=== PATIENT | male | born 1945 | race American Indian/Alaskan Native ===

== ENCOUNTER 2016-09-11 05:22 | Inpatient (IN) | payer MEDICARE ==
[2016-09-11] MEDS ORDERED: LASIX ONE (05:26)
[2016-09-11] MEDS ORDERED: NITRO-BID 2% TP ONE ×2 (05:26→05:30)
[2016-09-11] MEDS ORDERED: MORPHINE ONE (05:26)
[2016-09-11] MEDS ORDERED: LASIX IV ONE (05:30)
[2016-09-11] MEDS ORDERED: MORPHINE IV ONE (05:30)
[2016-09-11] MEDS ORDERED: BABY ASPIRIN ONE (05:49)
[2016-09-11] MEDS ORDERED: ASPIRIN PO ONE (05:55)
--- NOTE | 2016-09-11 05:56 | Emergency Department Report ---
ED Shortness of Breath HPI - General Chief Complaint: Dyspnea/Respdistress Stated Complaint: ITZEL Source: EMS Mode of arrival: Stretcher Limitations: Physical Limitation - History of Present Illness Initial Comments: This is a 70-year-old gentleman who comes in by EMS due to acute respiratory distress. He reports increased dyspnea over the course of the last 24 hours. He does give history of kidney failure. He is on his hemodialysis. Patient also reports a history of congestive heart failure. He did have heart attack 1 month ago. He states he did not have any chest pain when he had his heart attack 1 month ago. He denies any fevers. He denies any headache. He denies any chest pain today as well. Patient denies cough. Reports increased dyspnea with lying down. -: Gradual Severity: severe Improves With: oxygen Worsens With: lying flat Treatments Prior to Arrival: oxygen - Related Data Home Medications Medication Instructions Recorded Confirmed Last Taken Cinacalcet HCl [Sensipar] 90 mg PO DAILY 08/04/16 09/11/16 Unknown Glimepiride 1 mg PO BID 08/04/16 09/11/16 Unknown HYDROcodone/APAP 5-325 [[place] 1 each PO Q4HR PRN 08/04/16 09/11/16 08/03/16 5-325 mg TAB] Losartan [Cozaar] 50 mg PO QDAY 08/04/16 09/11/16 08/03/16 Sevelamer Carbonate [Renvela] 800 mg PO TIDWM 08/04/16 09/11/16 08/03/16 Sucroferric Oxyhydroxide [Velphoro] 1,000 mg PO QAC 08/04/16 09/11/16 Unknown Previous Rx's Medication Instructions Recorded Last Taken Type Aspirin [Aspirin BABY CHEW TAB] 81 mg PO QDAY #30 tab.chew 08/08/16 Unknown Rx AtorvaSTATin [Lipitor] 80 mg PO QHS #30 tablet 08/08/16 Unknown Rx Carvedilol [Coreg] 12.5 mg PO BID #60 tablet 08/08/16 Unknown Rx Ticagrelor [Brilinta] 90 mg PO BID #60 tablet 08/08/16 Unknown Rx Allergies Allergy/AdvReac Type Severity Reaction Status Date / Time No Known Allergies Allergy Verified 08/04/16 17:01 ED Review of Systems ROS: Stated complaint: ITZEL Other details as noted in HPI Comment: All other systems reviewed and negative Constitutional: denies: chills, fever Eyes: denies: eye pain, eye discharge, vision change ENT: denies: ear pain, throat pain Respiratory: shortness of breath, SOB with exertion, SOB at rest. denies: cough , wheezing Cardiovascular: denies: chest pain, palpitations Endocrine: no symptoms reported Gastrointestinal: denies: abdominal pain, nausea, diarrhea Genitourinary: denies: urgency, dysuria Musculoskeletal: other (leg edema). denies: back pain, joint swelling, arthralgia Skin: denies: rash, lesions Neurological: denies: headache, weakness, paresthesias Psychiatric: denies: anxiety, depression Hematological/Lymphatic: denies: easy bleeding, easy bruising ED Past Medical Hx - Past Medical History Previous Medical History?: Yes Hx Hypertension: Yes Hx Heart Attack/AMI: Yes Hx Congestive Heart Failure: Yes Hx Diabetes: Yes Hx Renal Disease: Yes (dialysis M/W/F) Hx Arthritis: No Hx HIV: No Additional medical history: Heart attack was treated with stent placement. - Surgical History Additional Surgical History: BKA left leg, right large toe amputated 07/21, hernia, left A/V graft. Has AV fistula left upper arm. - Social History Smoking Status: Current Every Day Smoker Substance Use Type: None - Medications Home Medications: Home Medications Medication Instructions Recorded Confirmed Last Taken Type Cinacalcet HCl [Sensipar] 90 mg PO DAILY 08/04/16 09/11/16 Unknown History Glimepiride 1 mg PO BID 08/04/16 09/11/16 Unknown History HYDROcodone/APAP 5-325 [[place] 1 each PO Q4HR PRN 08/04/16 09/11/16 08/03/16 History 5-325 mg TAB] Losartan [Cozaar] 50 mg PO QDAY 08/04/16 09/11/16 08/03/16 History Sevelamer Carbonate [Renvela] 800 mg PO TIDWM 08/04/16 09/11/16 08/03/16 History Sucroferric Oxyhydroxide [Velphoro] 1,000 mg PO QAC 08/04/16 09/11/16 Unknown History Aspirin [Aspirin BABY CHEW TAB] 81 mg PO QDAY #30 tab.chew 08/08/16 09/11/16 Unknown Rx AtorvaSTATin [Lipitor] 80 mg PO QHS #30 tablet 08/08/16 09/11/16 Unknown Rx Carvedilol [Coreg] 12.5 mg PO BID #60 tablet 08/08/16 09/11/16 Unknown Rx Ticagrelor [Brilinta] 90 mg PO BID #60 tablet 08/08/16 09/11/16 Unknown Rx ED Physical Exam - General Limitations: Physical Limitation General appearance: alert, in distress (due to respiratory condition) - Head Head exam: Present: atraumatic, normocephalic - Eye Eye exam: Present: normal appearance, EOMI. Absent: scleral icterus - ENT ENT exam: Present: normal exam, normal orophraynx - Respiratory Respiratory exam: Present: respiratory distress, rhonchi, decreased breath sounds - Cardiovascular Cardiovascular Exam: Present: normal rhythm, tachycardia, other (hyperdynamic). Absent: systolic murmur, diastolic murmur - GI/Abdominal GI/Abdominal exam: Present: soft. Absent: tenderness, organomegaly - Extremities Exam Extremities exam: Present: pedal edema (2+ to the mid calf bilaterally. Distal pedal pulses are palpable. Skin changes noted.), other (left arm with fistula good thrill noted.) - Back Exam Back exam: Present: normal inspection. Absent: tenderness, CVA tenderness (R), CVA tenderness (L) - Neurological Exam Neurological exam: Present: alert, oriented X3, other (moving all 4 extremities appropriately.) - Psychiatric Psychiatric exam: Present: normal affect, anxious - Skin Skin exam: Present: warm, dry, intact ED Course Vital Signs 09/11/16 09/11/16 09/11/16 05:25 05:29 05:33 Temperature 99.5 F Pulse Rate 114 H 116 H 107 H Respiratory 35 H 31 H Rate Blood Pressure 200/118 200/118 Blood Pressure [Right] O2 Sat by Pulse 99 100 Oximetry 09/11/16 09/11/16 09/11/16 05:34 05:36 05:38 Temperature 97.5 F L Pulse Rate 106 H 103 H 101 H Respiratory 27 H 29 H 30 H Rate Blood Pressure Blood Pressure 200/109 [Right] O2 Sat by Pulse 100 100 100 Oximetry 09/11/16 09/11/16 09/11/16 05:40 05:42 05:44 Temperature Pulse Rate 100 H 98 H 97 H Respiratory 27 H 26 H 28 H Rate Blood Pressure Blood Pressure [Right] O2 Sat by Pulse 100 100 100 Oximetry 09/11/16 09/11/16 09/11/16 05:46 05:48 05:49 Temperature Pulse Rate 99 H 98 H Respiratory 28 H 27 H 35 H Rate Blood Pressure Blood Pressure [Right] O2 Sat by Pulse 100 100 99 Oximetry 09/11/16 09/11/16 09/11/16 05:50 05:52 05:54 Temperature Pulse Rate 97 H 100 H 103 H Respiratory 28 H 26 H 36 H Rate Blood Pressure Blood Pressure [Right] O2 Sat by Pulse 100 100 100 Oximetry 09/11/16 09/11/16 09/11/16 05:56 05:58 06:00 Temperature Pulse Rate 99 H 98 H 96 H Respiratory 26 H 27 H 26 H Rate Blood Pressure Blood Pressure [Right] O2 Sat by Pulse 99 100 100 Oximetry 09/11/16 09/11/16 09/11/16 06:02 06:04 06:06 Temperature Pulse Rate 96 H 96 H 96 H Respiratory 27 H 26 H 27 H Rate Blood Pressure Blood Pressure [Right] O2 Sat by Pulse 98 98 97 Oximetry 09/11/16 09/11/16 09/11/16 06:08 06:10 06:11 Temperature 98.5 F Pulse Rate 96 H 96 H 96 H Respiratory 28 H 28 H 29 H Rate Blood Pressure 132/71 132/71 Blood Pressure 139/70 [Right] O2 Sat by Pulse 97 96 96 Oximetry 09/11/16 09/11/16 09/11/16 06:12 06:14 06:15 Temperature Pulse Rate 97 H 99 H 97 H Respiratory 26 H 32 H 29 H Rate Blood Pressure 132/71 132/71 139/70 Blood Pressure [Right] O2 Sat by Pulse 97 98 97 Oximetry 09/11/16 09/11/16 09/11/16 06:16 06:18 06:20 Temperature Pulse Rate 97 H 96 H 97 H Respiratory 26 H 24 28 H Rate Blood Pressure 139/70 139/70 139/70 Blood Pressure [Right] O2 Sat by Pulse 98 98 98 Oximetry 09/11/16 09/11/16 06:22 06:26 Temperature 98.3 F Pulse Rate 96 H 90 Respiratory 24 24 Rate Blood Pressure 139/70 Blood Pressure 139/70 [Right] O2 Sat by Pulse 98 99 Oximetry - Reevaluation(s) Reevaluation #1: 09/11/16 06:21 ECG at 05 33 with sinus tachycardia at 110 bpm with a normal TN and QRS. Biatrial enlargement is noted. There is anterolateral ST segment elevation. There is some mild ST depression noted in lead 3 as well. Does have the appearance of acute STEMI. Reevaluation #2: 09/11/16 06:21 Patient was immediately placed on BiPAP upon arrival here. Nitroglycerin paste was placed to his chest as well as morphine for comfort. Patient was given an aspirin as well. He was given Lasix as well. He did appear to be in acute congestive heart failure. ECG did M did demonstrate what appears to be an acute STEMI. I did obtain ECG from 08/06/2016 as well. This is an identical ECG. 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 He instructed me not to call at STEMI as the patient has no chest pain and has an identical ECG. Patient is subjectively feeling significant improvement on BiPAP. He is calm much more calm now. He continues to endorse no chest pain at this time. Pressures come down somewhat as well. His heart rate is coming down to the 90 range as well. Reevaluation #3: 09/11/16 06:48 Patient continues to remain very comfortable here. He does have a troponin that is elevated at 0.355. Unclear to me whether this is rising or whether this is still continuing to drop from his heart attack from one month ago. Again his ECG is unchanged compared to prior. I did speak with Dr. Mendez from cardiology and he did not want to do any aggressive interventions at this time. He did request the patient be admitted to the hospitalist for continued evaluation and care. Potassium also noted to be elevated. Patient was given calcium gluconate as well as Kayexalate. He is a dialysis patient will clearly require dialysis today. He has not had any output from the Lasix given today. ED Medical Decision Making - Lab Data Result diagrams: 09/11/16 05:47 09/11/16 05:47 - Radiology Data interpreted by me: cmg with pulm congestion. Critical care attestation.: If time is entered above; I have spent that time in minutes in the direct care of this critically ill patient, excluding procedure time. ED Disposition Clinical Impression: End stage renal disease, Hyperkalemia, Elevated troponin I level Congestive heart failure Qualifiers: Congestive heart failure type: systolic Congestive heart failure chronicity: acute Qualified Code(s): I50.21 - Acute systolic (congestive) heart failure Disposition: OP ADMITTED IP TO THIS HOSP Is pt being admited?: Yes Does the pt Need Aspirin: No Condition: Stable Referrals: PRIMARY CARE, [Primary Care Provider] - 3-5 Days Time of Disposition: 06:23
[2016-09-11 05:58] LABS: Basophils % (Auto) 0.5 % (0.0-1.8); Eosinophils % (Auto) 3.4 % (0.0-4.3); Hematocrit 40.2 % (35.5-45.6); Hemoglobin 12.8 gm/dl (11.8-15.2); Mean Corpuscular HGB Conc 32 % (32-34); Mean Corpuscular Hemoglobin 29 pg (28-32); Mean Corpuscular Volume 90 fl (84-94); Platelet Count 199 K/mm3 (140-440); Red Blood Count 4.48 M/mm3 (3.65-5.03); White Blood Count 9.5 K/mm3 (4.5-11.0)
[2016-09-11 06:06] LABS: Red Cell Distribution Width 20.2 % (13.2-15.2)
[2016-09-11 06:09] LABS: INR 1.13 (0.87-1.13)
[2016-09-11 06:27] LABS: Alanine Aminotransferase 7 units/L (7-56); Albumin 3.7 g/dL (3.9-5); Albumin/Globulin Ratio 1.1 %; Alkaline Phosphatase 146 units/L (35-129); Anion Gap 27 mmol/L; BUN/Creatinine Ratio 5.74; Bilirubin,Total 0.3 mg/dL (0.1-1.2); Blood Urea Nitrogen 54 mg/dL (9-20); Calcium 9.2 mg/dL (8.4-10.2); Carbon Dioxide 21 mmol/L (22-30); Chloride 101.6 mmol/L (98-107); Glucose 204 mg/dL (75-100); Sodium 143 mmol/L (137-145); Total Protein 7.1 g/dL (6.3-8.2)
[2016-09-11 06:35] LABS: Potassium 6.2 mmol/L (3.6-5.0)
[2016-09-11] MEDS ORDERED: KIONEX PO ONE (06:46)
[2016-09-11] MEDS ORDERED: CALCIUM GLUCONATE 1,000 MG in NACL 0.9% 100 ML IV ONE ×2 (06:46→11:00)
--- NOTE | 2016-09-11 07:01 | Admit Criteria Form ---
Admission Criteria Documentation: RESPIRATORY FAILURE GRG Clinical Indications for Admission to Inpatient Care (Place 'X' for any and all applicable criteria): Hospital admission is needed for appropriate care of the patient because of acute respiratory failure or insufficiency as indicated by ANY ONE of the following(1)(2)(3)(4)(5)(6)(7)(8): [X]I. Mechanical ventilation needed (acute invasive or noninvasive) [ ]II. Severe ventilation deficit as indicated by ANY ONE of the following (9) [ ]a) Respiratory acidosis (pH less than 7.32 and partial pressure of carbon dioxide greater than 40 mm Hg (5.3 kPa)) [ ]b) Partial pressure of carbon dioxide greater than 44 mm Hg (5.9 kPa ) (new) [ ]c) Airflow measurements less than 25% of predicted (eg, peak expiratory flow rate less than 100 L/minute) [ ]d) Forced vital capacity less than 15 mL/kg of ideal body weight, or 50% decrease in vital capacity from baseline [ ]III. Noncardiac pulmonary edema not resolving with rapid emergency treatment (8) [ ]IV. Severe respiratory distress as indicated by ANY ONE of the following: [ ]a) Severe tachypnea (respiratory rate greater than 30, greater than 45 for 6-month-old, greater than 60 for ) [ ]b) Severe hypoxemia (partial pressure of oxygen less than 50 mm Hg ( 6.7 kPa) on greater than 50% oxygen or partial pressure of oxygen to FIO2 ratio less than 200) [ ]c) Mental status deterioration from respiratory disease [ ]V. Airway obstruction or inadequate protection [A](10)(11) The original [employer] content created by [employer] has been revised. The portions of the content which have been revised are identified through the use of italic text or in bold, and [employer] has neither reviewed nor approved the modified material. All other unmodified content is copyright [employer]. Please see references footnoted in the original [employer] edition 2016 Admission Criteria Met: Yes
[2016-09-11 07:15] LABS: Cholesterol 137 mg/dL (50-199); LDL Cholesterol,Direct 60 mg/dL (50-130); Triglycerides 81 mg/dL (2-149)
--- NOTE | 2016-09-11 07:19 | History and Physical Report ---
History of Present Illness Date of examination: 09/11/16 Date of admission: 09/11/16 Chief complaint: Worsening shortness of breath and chest pressure since last night History of present illness: Very pleasant 70-year-old -[place] male patient with significant past medical history of coronary artery disease status post PCI to LAD 1 month ago end-stage renal disease on hemodialysis, peripheral vascular disease status post left BKA hypertension diabetes mellitus dyslipidemia presented to the emergency room with worsening shortness of breath and chest pain since last night was since early this morning EMS noted his blood pressures to be 210/110, significantly improved now. In the ER the patient was hypoxic maintained on BiPAP Patient has dialysis 3 times a week last one was on Sunday the next due today, patient claims compliance with his medications and diet as well as dialysis Complaints of vague chest pressure, fever or cough Initial workup revealed hyperkalemia, positive troponins and fluid overload Past History Past Medical History: CAD, diabetes, ESRD, hypertension, hyperlipidemia, PVD Past Surgical History: hernia repair, PTCA, Other (left BKA, AV fistula, toe amputation) Social history: lives with family, smoking, full code. denies: alcohol abuse, prescription drug abuse Family history: hypertension Medications and Allergies Allergies Allergy/AdvReac Type Severity Reaction Status Date / Time No Known Allergies Allergy Verified 08/04/16 17:01 Home Medications Medication Instructions Recorded Confirmed Last Taken Type Cinacalcet HCl [Sensipar] 90 mg PO DAILY 08/04/16 09/11/16 Unknown History Glimepiride 1 mg PO BID 08/04/16 09/11/16 Unknown History HYDROcodone/APAP 5-325 [[place] 1 each PO Q4HR PRN 08/04/16 09/11/16 08/03/16 History 5-325 mg TAB] Losartan [Cozaar] 50 mg PO QDAY 08/04/16 09/11/16 08/03/16 History Sevelamer Carbonate [Renvela] 800 mg PO TIDWM 08/04/16 09/11/16 08/03/16 History Sucroferric Oxyhydroxide [Velphoro] 1,000 mg PO QAC 08/04/16 09/11/16 Unknown History Aspirin [Aspirin BABY CHEW TAB] 81 mg PO QDAY #30 tab.chew 08/08/16 09/11/16 Unknown Rx AtorvaSTATin [Lipitor] 80 mg PO QHS #30 tablet 08/08/16 09/11/16 Unknown Rx Carvedilol [Coreg] 12.5 mg PO BID #60 tablet 08/08/16 09/11/16 Unknown Rx Ticagrelor [Brilinta] 90 mg PO BID #60 tablet 08/08/16 09/11/16 Unknown Rx Active Meds: Active Medications Acetaminophen/Hydrocodone Bitart ([place] 5/325) 1 each PO Q4HR PRN PRN Reason: Pain Aspirin (Baby Aspirin) 81 mg PO QDAY JACKELINE Atorvastatin Calcium (Lipitor) 80 mg PO QHS JACKELINE Carvedilol (Coreg) 12.5 mg PO BID [facility] Heparin Sodium (Porcine) (Heparin) 5,000 unit SUB-Q Q12HR [facility] Losartan Potassium (Cozaar) 50 mg PO QDAY [facility] Miscellaneous Medication (Cinacalcet Hcl [Sensipar]) 90 mg PO DAILY [facility] Miscellaneous Medication (Glimepiride [Glimepiride]) 1 mg PO BID [facility] Sevelamer Carbonate (Renvela) 800 mg PO TIDWM [facility] Ticagrelor (Brilinta) 90 mg PO BID [facility] Review of Systems Constitutional: weakness, no weight loss, no weight gain, no fever, no chills Ears, nose, mouth and throat: no nasal congestion, no nasal discharge Cardiovascular: chest pain, orthopnea, shortness of breath, high blood pressure , no palpitations, no paroxysmal nocturnal dyspnea Respiratory: shortness of breath, dyspnea on exertion, wheezing, no cough Gastrointestinal: no abdominal pain, no nausea, no vomiting Genitourinary Male: no dysuria, no flank pain Musculoskeletal: no myalgias, no arthritis Integumentary: no rash, no lesions Neurological: no numbness, no seizures, no syncope Psychiatric: no anxiety, no depression Endocrine: no cold intolerance, no heat intolerance Hematologic/Lymphatic: no easy bruising, no easy bleeding Allergic/Immunologic: no urticaria, no allergic rhinitis Exam - Constitutional Vitals: Temp Pulse Resp BP Pulse Ox 97.8 F 96 H 28 H 120/40 99 09/11/16 07:03 09/11/16 06:56 09/11/16 06:56 09/11/16 06:56 09/11/16 06:56 General appearance: Present: mild distress, well-nourished, other (on BiPAP) - EENT Eyes: Present: PERRL, EOM intact - Neck Neck: Present: supple, normal ROM - Respiratory Respiratory effort: labored Respiratory: bilateral: diminished, rales, wheezing, negative: rhonchi - Cardiovascular Rhythm: regular Heart Sounds: Present: S1 & S2 - Extremities Extremities: no ischemia, pulses intact, pulses symmetrical Extremity abnormal: other (left BKA) - Abdominal General gastrointestinal: Present: soft, non-tender, non-distended, normal bowel sounds - Integumentary Integumentary: Present: clear, warm - Musculoskeletal Musculoskeletal: generalized weakness - Psychiatric Psychiatric: appropriate mood/affect, cooperative - Neurologic Neurologic: CNII-XII intact, moves all extremities Results - Labs CBC & Chem 7: 09/11/16 05:47 09/11/16 10:30 Labs: Abnormal lab results 09/11/16 09/11/16 Range/Units 05:47 05:47 RDW 20.2 H (13.2-15.2) % Lymph % (Auto) 36.5 H (13.4-35.0) % Potassium 6.2 H* (3.6-5.0) mmol/L Carbon Dioxide 21 L (22-30) mmol/L BUN 54 H (9-20) mg/dL Creatinine 9.4 H (0.8-1.5) mg/dL Glucose 204 H (75-100) mg/dL Alkaline Phosphatase 146 H (35-129) units/L Troponin T 0.355 H* (0.00-0.029) ng/mL Albumin 3.7 L (3.9-5) g/dL Assessment and Plan --Acute respiratory failure requiring BiPAP Secondary to fluid overload secondary to end-stage renal disease as well as acute on chronic systolic congestive heart failure Continue oxygen, titrated to O2 sats more than 90% Hemodialysis, history diuretics as needed --Hyperkalemia Secondary to end-stage renal disease, received calcium gluconate and Kayexalate Repeat potassium and adjust as needed stat Hemodialysis d/w --End-stage renal disease on hemodialysis d/w , nephrology --Acute on chronic systolic congestive heart failure Ejection fraction 35-40% recently IV diuretics, and hemodialysis --Nonspecific elevation of cardiac enzymes Probably secondary to end-stage renal disease However patient had recent stent to LAD 1 month ago With severe peripheral vascular disease, would benefit by cardiology evaluation Resume home cardiac medications --Malignant hypertension Now better controlled, continue current antihypertensives And when necessary hydralazine --Type 2 diabetes mellitus Accu-Chek sliding scale coverage and ADA diet And resume oral hypoglycemics, check hemoglobin A1c --Dyslipidemia stable on lipid-lowering medications --DVT prophylaxis with heparin ,renal dose --Full CODE STATUS Closely monitor the patient and adjust the management as needed Patient's condition treatment plan discussed in detail with the patient, his nurse As well as the family members at the bedside I answered all their questions Medical records reviewed Critical care time 45 minutes
[2016-09-11 07:34] LABS: HDL Cholesterol 68 mg/dL (40-59)
--- NOTE | 2016-09-11 07:46 | XRay Report ---
AP CHEST History: Dyspnea. Findings: Compared to 08/06/16. Heart size is borderline. Bilateral lower lung zone alveolar infiltrates have developed. This probably represents pulmonary edema. Infiltrates could be considered if fever is present. Trace pleural effusions are likely present. No pneumothorax. Impression: CHF.
[2016-09-11] MEDS ORDERED: NORCO 5/325 PO PRN (08:00)
[2016-09-11] MEDS ORDERED: NOVOLOG SUB-Q NR (08:20)
[2016-09-11] MEDS ORDERED: MORPHINE IV PRN (08:22)
[2016-09-11] MEDS ORDERED: PERCOCET 5/325 PO PRN (08:22)
[2016-09-11] MEDS ORDERED: HEPARIN ONE (08:43)
[2016-09-11] MEDS: HEPARIN SUB-Q SCH ×2 (08:45→22:06)
[2016-09-11] MEDS: AMARYL PO SCH ×2 (08:45→19:13)
[2016-09-11] MEDS: RENVELA PO SCH ×3 (08:45→18:50)
--- NOTE | 2016-09-11 09:22 | Consultation ---
History of Present Illness Consult date: 09/11/16 Requesting physician: ALPHONSO NARANJO Consult reason: other (SOB) History of present illness: The pt is a 70 y/o male with a past medical history significant for CAD, s/p AMI with PCI of mid LAD with 2 JADE (2.75 x 22 and a 2.5 x 14 overlapping) on 08/04/2016, PVCs, ICMP, , PVD s/p left BKA and right foot great toe amputation, ESRD on HD (MW schedule), HTN, HLP, DM. He is followed in our office by Dr. Bob. He presented with complaints of SOB and orthopnea since yesterday at 11PM. He reports that his symptoms gradually began and have gotten progressively worse since last night. He denies any chest pain, palpitations, n/v, diaphoresis, dizziness, or syncope. He states that he underwent HD on Sunday as usual and has not missed any HD. He reports compliance with his medications. He denies any precipitating, aggravating, or alleviating factors. On evaluation, he is on BIPAP. Past History Past Medical History: CAD, diabetes, ESRD, hypertension, hyperlipidemia, PVD Past Surgical History: hernia repair, PTCA, Other (left BKA, AV fistula, toe amputation) Social history: lives with family, smoking, full code. denies: alcohol abuse, prescription drug abuse Family history: hypertension Medications and Allergies Allergies Allergy/AdvReac Type Severity Reaction Status Date / Time No Known Allergies Allergy Verified 08/04/16 17:01 Home Medications Medication Instructions Recorded Confirmed Last Taken Type Cinacalcet HCl [Sensipar] 90 mg PO DAILY 08/04/16 09/11/16 Unknown History Glimepiride 1 mg PO BID 08/04/16 09/11/16 Unknown History HYDROcodone/APAP 5-325 [[place] 1 each PO Q4HR PRN 08/04/16 09/11/16 08/03/16 History 5-325 mg TAB] Losartan [Cozaar] 50 mg PO QDAY 08/04/16 09/11/16 08/03/16 History Sevelamer Carbonate [Renvela] 800 mg PO TIDWM 08/04/16 09/11/16 08/03/16 History Sucroferric Oxyhydroxide [Velphoro] 1,000 mg PO QAC 08/04/16 09/11/16 Unknown History Aspirin [Aspirin BABY CHEW TAB] 81 mg PO QDAY #30 tab.chew 08/08/16 09/11/16 Unknown Rx AtorvaSTATin [Lipitor] 80 mg PO QHS #30 tablet 08/08/16 09/11/16 Unknown Rx Carvedilol [Coreg] 12.5 mg PO BID #60 tablet 08/08/16 09/11/16 Unknown Rx Ticagrelor [Brilinta] 90 mg PO BID #60 tablet 08/08/16 09/11/16 Unknown Rx Active Meds: Active Medications Aspirin (Baby Aspirin) 81 mg PO QDAY [facility] Atorvastatin Calcium (Lipitor) 80 mg PO QHS [facility] Carvedilol (Coreg) 12.5 mg PO BID [facility] Cinacalcet (Sensipar) 90 mg PO QDAY [facility] Glimepiride (Amaryl) 1 mg PO BIDDIAB [facility] Heparin Sodium (Porcine) (Heparin) 5,000 unit SUB-Q Q12HR [facility] Insulin Aspart (Novolog) 0 units SUB-Q ONCE NR PRN Reason: Protocol Stop: 09/11/16 12:00 Losartan Potassium (Cozaar) 50 mg PO QDAY [facility] Miscellaneous Medication (Sucroferric Oxyhydroxide [Velphoro]) 1,000 mg PO QAC [facility] Morphine Sulfate (Morphine) 2 mg IV Q4H PRN PRN Reason: Pain, Moderate (4-6) Oxycodone/Acetaminophen (Percocet 5/325) 1 tab PO Q6H PRN PRN Reason: Pain, Moderate (4-6) Sevelamer Carbonate (Renvela) 800 mg PO TIDWM [facility] Ticagrelor (Brilinta) 90 mg PO BID [facility] Review of Systems Constitutional: no weight loss, no weight gain, no fever, no chills, no sweats Ears, nose, mouth and throat: no ear pain, no nose pain, no sinus pressure, no sinus pain, no epistaxis, no bleeding gums, no dental pain, no mouth pain, no dysphagia, no hoarseness, no sore throat Cardiovascular: orthopnea, shortness of breath, dyspnea on exertion, high blood pressure, no chest pain, no palpitations, no rapid/irregular heart beat, no edema, no syncope, no lightheadedness, no leg edema Respiratory: shortness of breath, dyspnea on exertion, no cough, no congestion, no wheezing, no pain Gastrointestinal: no abdominal pain, no nausea, no vomiting, no diarrhea, no constipation, no change in bowel habits Genitourinary Male: no dysuria, no hematuria, no flank pain, no discharge, no urinary frequency, no urinary hesitancy Musculoskeletal: no neck stiffness, no neck pain, no shooting arm pain, no arm numbness/tingling, no low back pain, no shooting leg pain, no leg numbness/ tingling, no redness of joints, no limitation of motion, no gait dysfunction Integumentary: no rash, no pruritis, no redness, no sores, no wounds Neurological: no head injury, no paralysis, no weakness, no parathesias, no numbness, no tingling, no seizures, no syncope, no tremors, no ataxia, no lack of coordination Endocrine: no cold intolerance, no heat intolerance, no polyphagia, no excessive thirst Hematologic/Lymphatic: no easy bruising, no easy bleeding, no lymphadenopathy Allergic/Immunologic: no urticaria, no wheezing, no persistent infections Physical Examination Vital Signs Temp Pulse Resp BP Pulse Ox 99.5 F 114 H 35 H 200/118 99 09/11/16 05:25 09/11/16 05:25 09/11/16 05:25 09/11/16 05:25 09/11/16 05:25 General appearance: mild distress HEENT: Positive: PERRL, Normocephaly, Mucus Membranes Moist Neck: Positive: neck supple, trachea midline Cardiac: Positive: Reg Rate and Rhythm, S1/S2 Lungs: Positive: Rales (bilaterlly throughout ), Oxygen Neuro: Positive: Grossly Intact, Cranial Nerve 2-12 Intact Abdomen: Positive: Unremarkable, Soft, Active Bowel Sounds. Negative: Tender Skin: Positive: Clear. Negative: Rash, Wound Musculoskeletal: No Fluid Collection, No Pain, Normal Range of Motion, other ( left BKA and right foot great toe amputation) Extremities: Present: Other (left BKA and right foot great toe amputation). Absent: edema Results 09/11/16 05:47 09/11/16 08:27 Comprehensive Metabolic Panel 09/11/16 Range/Units 08:27 Potassium 7.2 H* (3.6-5.0) mmol/L - Imaging and Cardiology Echo: report reviewed (08/04/2016: EF 35-40%, mild - JERE 1.53, AV mean gradient 6mmHg, abnormal diastolic function. ) Cardiac cath: report reviewed (08/04/2016: EF 30 - 35%, PCI of mid LAD with 2 JADE) EKG interpretations - Telemetry EKG Rhythm: Sinus Rhythm - EKG Sinus rhythms and dysrhythmias: sinus rhythm Myocardial infarction: anterior [place] (old age or i, lateral MS (old age or in Assessment and Plan Assessment: Acute systolic heart failure CAD, s/p AMI with PCI of mid LAD with 2 JADE on 08/04/2016 ICMP Elevated troponin - pt denies chest pain, ECG with NAF, minimally elevated, currently nonspecific in setting of ESRD and acutely decompensated HF. Mild Hyperkalemia PVD s/p left BKA and right foot great toe amputation ESRD on HD HTN HLP DM Plan: Cont ASA 81, statin, brilinta, coreg. Hold losartan at this time in setting of hyperkalemia. Cont to trend troponins. Electrolyte management and volume optimization per nephrology - STAT HD ordered per nephrology. Cont tele. Assessment and plan reviewed with pt and pt's at bedside. The patient has been seen in conjunction with Dr. Jyoti Tabares who agrees with the assessment and plan of care.
--- NOTE | 2016-09-11 09:49 | Consultation ---
History of Present Illness - Reason for Consult Consult date: 09/11/16 (consult) - History of Present Illness Discussed with --pt is reported to have hyperkalemia---stat HD ordered. Spoke with dialysis nurse. Monitor K Past History Past Medical History: CAD, diabetes, ESRD, hypertension, hyperlipidemia, PVD Past Surgical History: hernia repair, PTCA, Other (left BKA, AV fistula, toe amputation) Social history: lives with family, smoking, full code. denies: alcohol abuse, prescription drug abuse Family history: hypertension Medications and Allergies Allergies Allergy/AdvReac Type Severity Reaction Status Date / Time No Known Allergies Allergy Verified 08/04/16 17:01 Home Medications Medication Instructions Recorded Confirmed Last Taken Type Cinacalcet HCl [Sensipar] 90 mg PO DAILY 08/04/16 09/11/16 Unknown History Glimepiride 1 mg PO BID 08/04/16 09/11/16 Unknown History HYDROcodone/APAP 5-325 [[place] 1 each PO Q4HR PRN 08/04/16 09/11/16 08/03/16 History 5-325 mg TAB] Losartan [Cozaar] 50 mg PO QDAY 08/04/16 09/11/16 08/03/16 History Sevelamer Carbonate [Renvela] 800 mg PO TIDWM 08/04/16 09/11/16 08/03/16 History Sucroferric Oxyhydroxide [Velphoro] 1,000 mg PO QAC 08/04/16 09/11/16 Unknown History Aspirin [Aspirin BABY CHEW TAB] 81 mg PO QDAY #30 tab.chew 08/08/16 09/11/16 Unknown Rx AtorvaSTATin [Lipitor] 80 mg PO QHS #30 tablet 08/08/16 09/11/16 Unknown Rx Carvedilol [Coreg] 12.5 mg PO BID #60 tablet 08/08/16 09/11/16 Unknown Rx Ticagrelor [Brilinta] 90 mg PO BID #60 tablet 08/08/16 09/11/16 Unknown Rx Active Meds: Active Medications Aspirin (Baby Aspirin) 81 mg PO QDAY [facility] Atorvastatin Calcium (Lipitor) 80 mg PO QHS [facility] Carvedilol (Coreg) 12.5 mg PO BID [facility] Cinacalcet (Sensipar) 90 mg PO QDAY [facility] Glimepiride (Amaryl) 1 mg PO BIDDIAB [facility] Last Admin: 09/11/16 08:45 Dose: 1 mg Heparin Sodium (Porcine) (Heparin) 5,000 unit SUB-Q Q12HR [facility] Last Admin: 09/11/16 08:45 Dose: 5,000 unit Calcium Gluconate 1,000 mg/ (Sodium Chloride) 110 mls @ 660 mls/hr IV ONCE ONE Stop: 09/11/16 09:50 Insulin Aspart (Novolog) 0 units SUB-Q ONCE NR PRN Reason: Protocol Stop: 09/11/16 12:00 Losartan Potassium (Cozaar) 50 mg PO QDAY [facility] Miscellaneous Medication (Sucroferric Oxyhydroxide [Velphoro]) 1,000 mg PO QAC [facility] Morphine Sulfate (Morphine) 2 mg IV Q4H PRN PRN Reason: Pain, Moderate (4-6) Oxycodone/Acetaminophen (Percocet 5/325) 1 tab PO Q6H PRN PRN Reason: Pain, Moderate (4-6) Sevelamer Carbonate (Renvela) 800 mg PO TIDWM [facility] Last Admin: 09/11/16 08:45 Dose: 800 mg Ticagrelor (Brilinta) 90 mg PO BID [facility] Exam - Constitutional Vitals: Temp Pulse Resp BP Pulse Ox 97.8 F 92 H 23 127/77 98 09/11/16 07:03 09/11/16 08:22 09/11/16 08:22 09/11/16 08:22 09/11/16 08:22 Results - Labs CBC & Chem 7: 09/11/16 05:47 09/11/16 08:27 Labs: Abnormal lab results 09/11/16 Range/Units 08:27 Potassium 7.2 H* (3.6-5.0) mmol/L
[2016-09-11] MEDS ORDERED: NON-FORMULARY (Glimepiride [Glimepiride] 1 MG) PO SCH (10:00)
[2016-09-11] MEDS ORDERED: COZAAR PO SCH (10:00)
[2016-09-11] MEDS: BRILINTA PO SCH ×2 (10:00→22:05)
[2016-09-11] MEDS ORDERED: NON-FORMULARY (Cinacalcet Hcl [Sensipar] 90 MG) PO SCH (10:00)
[2016-09-11] MEDS ORDERED: NACL 0.9% 100 ML IV PRN (11:00)
[2016-09-11] MEDS ORDERED: NACL 0.9 (PRIMING MACHINE ONLY DIALYSIS) MC ONE (11:26)
[2016-09-11] MEDS ORDERED: SUCROFERRIC OXYHYDROXIDE 1000 MG PO SCH (11:30)
[2016-09-11 13:38] LABS: Creatine Kinase MB 4.4 ng/mL (0.0-4.0)
[2016-09-11] MEDS: BABY ASPIRIN PO SCH (16:37)
[2016-09-11] MEDS: SENSIPAR PO SCH (16:37)
[2016-09-11] MEDS: COREG PO SCH ×2 (16:38→22:05)
[2016-09-11 17:01] LABS: BUN/Creatinine Ratio 4.25; Calcium 9.4 mg/dL (8.4-10.2); Chloride 94.3 mmol/L (98-107); Potassium 4.6 mmol/L (3.6-5.0)
[2016-09-11 17:58] LABS: Creatine Kinase MB 3.6 ng/mL (0.0-4.0)
--- NOTE | 2016-09-11 22:23 | Consultation ---
REASON FOR CONSULTATION: Hyperkalemia, renal failure, and fluid overload. HISTORY OF PRESENT ILLNESS: This 70-year-old -[place] male with history of end-stage renal disease, hypertension, diabetes, coronary artery disease, was brought to the Emergency Room for having shortness of breath, started around 11 p.m. last night. In the ER, he was noted to have a blood pressure of 210/110 and he was hypoxic, placed on BiPAP. The patient states that he has been on hemodialysis for the past 7 years. He goes to [facility] in [place] under the care of Dr. Kristina Christie. The patient gives history of coronary artery disease, had 2 stents placed last month in 08/2016. The patient denies chest pain at present time. PAST MEDICAL HISTORY: Diabetes, hypertension, coronary artery disease, end-stage renal disease, status post acute [place] with PCI of mid LAD with 2 JADE stents on 08/04/2016, history of peripheral vascular disease, status post left below knee amputation and right great toe amputation. PERSONAL HISTORY: Denies smoking, alcohol, or drug abuse. FAMILY HISTORY: No family history of kidney failure. ALLERGIES: None. CURRENT MEDICATIONS: Baby aspirin 81 mg a day, Lipitor 80 mg a day, carvedilol 12.5 mg twice a day, Sensipar 90 mg a day, glimepiride 1 mg twice a day, insulin, Renvela with each meal, Brilinta 90 mg twice a day. REVIEW OF SYSTEMS: The patient complains of shortness of breath. Denies chest pain. Denies difficulty swallowing. Denies cold, cough, or sore throat. Denies abdomen pain, nausea, vomiting, or GI bleeding. Denies swelling of the legs. Denies dysuria or hematuria. Other review of systems reviewed and negative. PHYSICAL EXAMINATION: GENERAL: The patient is alert, oriented, well developed male noted to be slightly tachypneic with respiratory rate of 28. VITAL SIGNS: Blood pressure 127/77, pulse 92, afebrile. EYES: Pupils reactive. Conjunctivae pink. Oral mucosa and tongue are moist. Lips noncyanotic. NECK: No JVD. No thyroid enlargement. LUNGS: Diminished breath sounds in bases. HEART: S1, S2 regular. No pericardial rub. ABDOMEN: Soft, bowel sounds present, nontender. No liver or spleen palpable. EXTREMITIES: Left upper arm AV access has bruit and thrill. Left below knee amputation and right great toe amputation. Able to move all extremities. LABORATORY DATA: WBC 9.5, hemoglobin 12.8, hematocrit 40.2, platelets 199. Sodium 143, potassium 6.2, chloride 101, CO2 21, BUN 54, creatinine 9.4, glucose 204. Troponin T 0.355. BNP greater than 7000. Albumin 3.7. Repeat potassium 7.2. Chest x-ray was reported to have bilateral alveolar infiltrates in the lower lung zones suggestive of pulmonary edema. ASSESSMENT AND PLAN: 1. Acute hypoxic respiratory failure/acute systolic heart failure. 2. Hyperkalemia. 3. End-stage renal disease. 4. Coronary artery disease. 5. Ischemic cardiomyopathy. 6. Peripheral vascular disease. 7. Type 2 diabetes. 8. Hypertension. Stat hemodialysis ordered. Monitor potassium levels closely. Ultrafiltration as tolerated. Adjust target weight. Adjust medications per renal function. The patient was advised on fluid restriction and low potassium diet. JOB# [id number] Ines/NTS
[2016-09-12 06:44] LABS: Basophils % (Auto) 0.6 % (0.0-1.8); Eosinophils % (Auto) 0.1 % (0.0-4.3); Hematocrit 34.5 % (35.5-45.6); Hemoglobin 11.1 gm/dl (11.8-15.2); Mean Corpuscular HGB Conc 32 % (32-34); Mean Corpuscular Hemoglobin 29 pg (28-32); Mean Corpuscular Volume 90 fl (84-94); Platelet Count 177 K/mm3 (140-440); Red Blood Count 3.85 M/mm3 (3.65-5.03); White Blood Count 4.3 K/mm3 (4.5-11.0)
[2016-09-12 06:56] LABS: BUN/Creatinine Ratio 5.94; Chloride 97.4 mmol/L (98-107); Potassium 4.4 mmol/L (3.6-5.0)
[2016-09-12 07:26] LABS: Red Cell Distribution Width 20.2 % (13.2-15.2)
--- NOTE | 2016-09-12 09:03 | Progress Note ---
Assessment and Plan - Patient Problems (1) Acute systolic CHF (congestive heart failure), NYHA class 4 Status: Acute Plan to address problem: S/P HD yesterday. Had UF-3 liters. Symptoms much better. CXR- resolved CHF. 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 Advised on fluid restriction and renal diet. 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 transplanted heart: N Associated angina: A Plan to address problem: S/P PCI on 08/04/16- discussed with - cardiology Subjective Date of service: 09/12/16 Interval history: pt is alert, oriented, feels much better, denies CP or SOB Objective - Vital Signs Vital signs: Vital Signs - 12hr 09/11/16 09/11/16 09/12/16 22:05 22:41 00:00 Temperature 98.2 F Pulse Rate 88 111 H Pulse Rate [ 89 Right Radial] Respiratory 20 18 Rate Blood Pressure 116/68 Blood Pressure 116/61 [Right Arm] O2 Sat by Pulse 100 97 Oximetry 09/12/16 04:00 Temperature 97.9 F Pulse Rate Pulse Rate [ 92 H Right Radial] Respiratory 18 Rate Blood Pressure Blood Pressure 126/65 [Right Arm] O2 Sat by Pulse 98 Oximetry - General Appearance General appearance: well-developed EENT: mucous membranes moist Neck: no JVD Respiratory: Present: Clear to Ascultation Cardiology: regular Gastrointestinal: normoactive bowel sounds Neurologic: alert and oriented x3 Psychiatric: mood/affect appropriate, cooperative - Lab 09/12/16 05:17 09/12/16 05:17 Most recent lab results Calcium 9.0 mg/dL (8.4-10.2) 09/12/16 05:17
[2016-09-12] MEDS: SENSIPAR PO SCH (10:12)
[2016-09-12] MEDS: AMARYL PO SCH (10:12)
[2016-09-12] MEDS: BRILINTA PO SCH (10:13)
[2016-09-12] MEDS: COREG PO SCH (10:13)
[2016-09-12] MEDS: BABY ASPIRIN PO SCH (10:13)
[2016-09-12] MEDS: RENVELA PO SCH ×2 (10:13→13:14)
[2016-09-12] MEDS: HEPARIN SUB-Q SCH (10:14)
--- NOTE | 2016-09-12 10:29 | Discharge Summary ---
Providers - Providers Date of Admission: 09/11/16 07:08 Date of discharge: 09/12/16 Attending physician: VICKY ELLISON 09/11/16 07:12 Consult to Physician [CONS] Routine Consulting Provider: KRISTY JOSE Reason For Exam: ESRD on HD Place consult to:: harry Notified:: [place] 09/11/16 07:50 Consult to Physician [CONS] Routine Consulting Provider: GENE BOB Reason For Exam: Recent stent LAD/chest pain sob Place consult to:: [facility] Notified:: yes Was contact made?: Yes If yes, spoke with:: janny Time called:: 08:52 09/11/16 09:42 Consult to Physician [CONS] Stat Consulting Provider: NANCIE COLLAZO Reason For Exam: hyperkalemia/ESRD /resp failure Place consult to:: . Notified:: 09/11/16 20:16 Consult to Wound/ET Nurse [CONS] Routine Reason For Exam: wound eval, 3 week rt toe amputation. Primary care physician: [employer] TECHNICIAN Hospitalization Condition: Good Disposition: DISCHARGED TO HOME OR SELFCARE - Discharge Diagnoses (1) Acute on chronic systolic (congestive) heart failure Status: Acute (2) Pulmonary edema Status: Acute Qualifiers: Chronicity: C (3) ESRD (end stage renal disease) on dialysis Status: Chronic Core Measure Documentation - Palliative Care Palliative Care/ Comfort Measures: Not Applicable - Core Measures Any of the following diagnoses?: heart failure - Heart Failure Discharge Requirements MARTI/ARB for LVSD if EF <40%: Yes Beta sandy at discharge: Yes Exam - Constitutional Vitals: Temp Pulse Resp BP Pulse Ox 97.9 F 92 H 18 126/65 96 09/12/16 04:00 09/12/16 04:00 09/12/16 04:00 09/12/16 04:00 09/12/16 09:16 General appearance: Present: no acute distress Plan Activity: advance as tolerated Diet: low fat, low cholesterol, low salt, renal Additional Instructions: 1.Follow up with PCP in 1 week. 2.Continue routine hemodialysis as scheduled. 3.Follow up with Dr. Bob on 09/18/16 Follow up with: PRIMARY CARE, [Primary Care Provider] - 3-5 Days
--- NOTE | 2016-09-12 11:25 | Progress Note ---
Assessment and Plan Assessment: Acute systolic heart failure - improved. CAD, s/p AMI with PCI of mid LAD with 2 JADE on 08/04/2016 ICMP Elevated troponin - flat; pt denies chest pain, ECG with NAF, currently nonspecific in setting of ESRD and acutely decompensated HF. Mild Hyperkalemia - improved s/p HD. PVD s/p left BKA and right foot great toe amputation ESRD on HD HTN HLP DM Plan: Cont ASA 81, statin, brilinta, coreg. Resume home losartan now that serum K+ is WNL. Repeat CXR demonstrated marked resolution of CHF. Currently stable cardiac status. Pt may discharge home from cardiology standpoint. Follow up in our [place] office with Dr. Bob on 09/18/2016 @ 3:00PM. Assessment and plan reviewed with pt at bedside. The patient has been seen in conjunction with Dr. Jyoti Tabares who agrees with the assessment and plan of care. Subjective Date of service: 09/12/16 Principal diagnosis: acute systolic HF Interval history: Pt resting comfortably in bed, states all of his symptoms have resolved. Denies SOB, orthopnea, PND. VSS. Underwent HD yesterday. Objective Last Vital Signs Temp 97.9 F 09/12/16 04:00 Pulse 92 H 09/12/16 04:00 Resp 18 09/12/16 04:00 BP 126/65 09/12/16 04:00 Pulse Ox 96 09/12/16 09:16 - Physical Examination HEENT: Positive: PERRL, Normocephaly, Mucus Membranes Moist Neck: Positive: neck supple, trachea midline Cardiac: Positive: Reg Rate and Rhythm, S1/S2 Lungs: Positive: clear to auscultation, Normal Breath Sounds Neuro: Positive: Grossly Intact, Cranial Nerve 2-12 Intact Abdomen: Positive: Unremarkable, Soft, Active Bowel Sounds. Negative: Tender Skin: Positive: Clear. Negative: Rash, Wound Musculoskeletal: No Fluid Collection, No Pain, Normal Range of Motion, other ( left BKA and right foot great toe amputation) Extremities: Present: Other (left BKA and right foot great toe amputation). Absent: edema - Labs and Meds Cardiac Enzymes 09/11/16 09/11/16 Range/Units 13:05 17:25 CK-MB (CK-2) 4.4 H 3.6 (0.0-4.0) ng/mL CBC 09/12/16 Range/Units 05:17 WBC 4.3 L (4.5-11.0) K/mm3 RBC 3.85 (3.65-5.03) M/mm3 Hgb 11.1 L (11.8-15.2) gm/dl Hct 34.5 L (35.5-45.6) % Plt Count 177 (140-440) K/mm3 Lymph # 1.3 (1.2-5.4) K/mm3 [place] # 0.5 (0.0-0.8) K/mm3 Eos # 0.0 (0.0-0.4) K/mm3 Baso # 0.0 (0.0-0.1) K/mm3 Comprehensive Metabolic Panel 09/11/16 09/12/16 Range/Units 16:22 05:17 Sodium 142 144 (137-145) mmol/L Potassium 4.6 D 4.4 (3.6-5.0) mmol/L Chloride 94.3 L 97.4 L (98-107) mmol/L Carbon Dioxide 31 H D 28 (22-30) mmol/L BUN 23 H 41 H (9-20) mg/dL Creatinine 5.4 H 6.9 H (0.8-1.5) mg/dL Glucose 199 H 81 (75-100) mg/dL Calcium 9.4 9.0 (8.4-10.2) mg/dL - Imaging and Cardiology Echo: report reviewed (08/04/2016: EF 35-40%, mild - JERE 1.53, AV mean gradient 6mmHg, abnormal diastolic function. ) Cardiac cath: report reviewed (08/04/2016: EF 30 - 35%, PCI of mid LAD with 2 JADE) - Telemetry EKG Rhythm: Sinus Rhythm - EKG Sinus rhythms and dysrhythmias: sinus rhythm Myocardial infarction: anterior MO (old age or i, lateral MO (old age or in
[2016-09-12] MEDS ORDERED: COZAAR PO SCH (12:00)
--- NOTE | 2016-09-12 12:01 | XRay Report ---
Portable chest: SOB. Comparison is made to the prior study of September 11. The lungs are currently clear. The heart does appear slightly enlarged there is no vascular congestion. There are no effusions identified. Compared to the prior examination this represents a marked resolution of the CHF pattern. Impression: Resolved CHF. Mild cardiomegaly.
[2016-09-12 13:16] VITALS: BP 164/78
== END 2016-09-12 16:02 | disposition home or self-care (01) | DRG 291 ==
LOC: ED 05:22 → 4A 07:08
PROVIDERS: ADMIT Internal Medicine; ATTEND Internal Medicine
PROC: 5A09357 Assistance with Respiratory Ventilation, Less than 24 Consecutive Hours, Continuous Positive Airway Pressure (ICD-10-PCS; principal; 2016-09-11)
PROC: 5A1D60Z (ICD-10-PCS; 2016-09-11)
DX: I13.0 Hypertensive heart and chronic kidney disease with heart failure and stage 1 through stage 4 chronic kidney disease, or unspecified chronic kidney disease (principal); N18.6 End stage renal disease; J96.21 Acute and chronic respiratory failure with hypoxia; I50.23 Acute on chronic systolic (congestive) heart failure; F17.210 Nicotine dependence, cigarettes, uncomplicated; E78.5 Hyperlipidemia, unspecified; E87.5 Hyperkalemia; I25.10 Atherosclerotic heart disease of native coronary artery without angina pectoris; I25.5 Ischemic cardiomyopathy; I35.0 Nonrheumatic aortic (valve) stenosis; E11.22 Type 2 diabetes mellitus with diabetic chronic kidney disease; E11.51 Type 2 diabetes mellitus with diabetic peripheral angiopathy without gangrene; Z82.49 Family history of ischemic heart disease and other diseases of the circulatory system; Z79.4 Long term (current) use of insulin; Z79.899 Other long term (current) drug therapy; Z89.512 Acquired absence of left leg below knee; Z89.411 Acquired absence of right great toe; Z95.5 Presence of coronary angioplasty implant and graft
CPT/HCPCS: 36415; 71010; 80048; 80053; 80061; 82550; 82553; 83036; 83880; 84132; 84484; 85025; 85610; 93005; 93010; 94760; 96365; 96366; 96375; A9270-GY; J0610; J1644; J1940; J2270; J7030

== ENCOUNTER 2017-05-07 05:37 | Inpatient (IN) | payer MEDICARE ==
[2017-05-07] MEDS ORDERED: XOPENEX IH ONE (05:47)
[2017-05-07] MEDS ORDERED: ATROVENT IH ONE (05:47)
[2017-05-07] MEDS ORDERED: ZOFRAN IV ONE (05:50)
[2017-05-07] MEDS ORDERED: ZOFRAN ONE (06:02)
[2017-05-07 06:03] LABS: Hematocrit 35.5 % (35.5-45.6); Hemoglobin 11.3 gm/dl (11.8-15.2); Mean Corpuscular HGB Conc 32 % (32-34); Mean Corpuscular Hemoglobin 31 pg (28-32); Mean Corpuscular Volume 97 fl (84-94); Platelet Count 267 K/mm3 (140-440); Red Blood Count 3.68 M/mm3 (3.65-5.03); Red Cell Distribution Width 17.5 % (13.2-15.2); White Blood Count 11.3 K/mm3 (4.5-11.0)
[2017-05-07] MEDS ORDERED: TRIDIL DRIP 50MG/250ML 50 MG/250 ML BOTTLE IV ONE (06:06)
--- NOTE | 2017-05-07 06:16 | XRay Report ---
FINAL REPORT EXAM: XR CHEST 1V AP HISTORY: Shortness of breath TECHNIQUE: AP portable view(s) of the chest obtained. PRIORS: 08/04/2016 FINDINGS: No mediastinal shift. Cardiac silhouette is not enlarged for portable technique. Basilar predominant pulmonary interstitial thickening and patchy alveolar opacities are present. No pneumothorax or definite effusion. No acute skeletal finding. IMPRESSION: Pulmonary interstitial edema is again suggested, similar to prior. No pneumothorax, effusion, or definite airspace disease identified. Consider PA and lateral chest radiographic follow-up as warranted.
[2017-05-07] MEDS ORDERED: LASIX IV ONE (06:18)
--- NOTE | 2017-05-07 06:20 | Emergency Department Report ---
ED General Adult HPI - General Chief complaint: Dyspnea/Respdistress Stated complaint: ITZEL Time Seen by Provider: 05/07/17 06:06 Source: patient, family, EMS (ems notes not available at time of chart dictation), RN notes reviewed, old records reviewed Mode of arrival: Stretcher Limitations: Physical Limitation - History of Present Illness Initial comments: This is a 71-year-old male who was previously unknown to this provider. Past medical history includes heart disease with stents, end-stage renal disease on dialysis Sunday, Sunday, Sunday, hyperlipidemia, peripheral vascular disease , history of left lower extremity below-knee amputation. Nephrology: Dr. Kristina Christie The patient presents to the ER with a complaint of pain with shortness of breath. The shortness of breath is constant. It does not radiate anywhere. It worsens with physical exertion. It decreases in the emergency room with rest , nitroglycerin, and BiPAP therapy. Patient endorses no chest pain. There is no leg pain. He denies dietary instructions -: Gradual Consistency: constant Improves with: medication, rest Worsens with: movement Associated Symptoms: cough, diaphoresis, loss of appetite, nausea/vomiting, shortness of breath, weakness. denies: chest pain - Related Data Home Medications Medication Instructions Recorded Confirmed Last Taken Cinacalcet HCl [Sensipar] 60 mg PO BID 08/04/16 05/07/17 Unknown Sucroferric Oxyhydroxide [Velphoro] 1,000 mg PO QAC 08/04/16 05/07/17 Unknown AtorvaSTATin [Lipitor] 40 mg PO QHS 05/07/17 05/07/17 Unknown Ticagrelor [Brilinta] 90 mg PO BID 05/07/17 05/07/17 Unknown Previous Rx's Medication Instructions Recorded Last Taken Type Aspirin [Aspirin BABY CHEW TAB] 81 mg PO QDAY #30 tab.chew 08/08/16 Unknown Rx Carvedilol [Coreg] 12.5 mg PO BID #60 tablet 08/08/16 Unknown Rx Losartan [Cozaar] 25 mg PO QHS #30 tablet 05/08/17 Unknown Rx Allergies Allergy/AdvReac Type Severity Reaction Status Date / Time No Known Allergies Allergy Verified 08/04/16 17:01 ED Review of Systems ROS: Stated complaint: ITZEL Other details as noted in HPI Comment: Unobtainable due to pts medical conditions Constitutional: malaise Respiratory: shortness of breath Cardiovascular: denies: chest pain Gastrointestinal: nausea, vomiting Genitourinary: as per HPI Musculoskeletal: as per HPI Skin: as per HPI Neurological: as per HPI ED Past Medical Hx - Past Medical History Previous Medical History?: Yes Hx Hypertension: Yes Hx Heart Attack/AMI: Yes Hx Congestive Heart Failure: Yes Hx Diabetes: Yes Hx Renal Disease: Yes (dialysis M/W/F) Hx Arthritis: No Hx HIV: No Additional medical history: Heart attack was treated with stent placement. - Surgical History Past Surgical History?: Yes Additional Surgical History: BKA left leg, right large toe amputated 07/21, hernia, left A/V graft. Has AV fistula left upper arm. - Social History Smoking Status: Never Smoker Substance Use Type: None - Medications Home Medications: Home Medications Medication Instructions Recorded Confirmed Last Taken Type Cinacalcet HCl [Sensipar] 60 mg PO BID 08/04/16 05/07/17 Unknown History Sucroferric Oxyhydroxide [Velphoro] 1,000 mg PO QAC 08/04/16 05/07/17 Unknown History Aspirin [Aspirin BABY CHEW TAB] 81 mg PO QDAY #30 tab.chew 08/08/16 05/07/17 Unknown Rx Carvedilol [Coreg] 12.5 mg PO BID #60 tablet 08/08/16 05/07/17 Unknown Rx AtorvaSTATin [Lipitor] 40 mg PO QHS 05/07/17 05/07/17 Unknown History Ticagrelor [Brilinta] 90 mg PO BID 05/07/17 05/07/17 Unknown History Losartan [Cozaar] 25 mg PO QHS #30 tablet 05/08/17 Unknown Rx ED Physical Exam - General Limitations: Physical Limitation General appearance: alert, in distress, obese - Head Head exam: Present: atraumatic, normocephalic - Eye Eye exam: Present: normal appearance - ENT ENT exam: Present: normal exam, normal orophraynx, mucous membranes moist, normal external ear exam - Neck Neck exam: Present: normal inspection, full ROM - Respiratory Respiratory exam: Present: respiratory distress, rales, rhonchi - Cardiovascular Cardiovascular Exam: Present: normal rhythm, tachycardia, normal heart sounds. Absent: systolic murmur, diastolic murmur, rubs, gallop - GI/Abdominal GI/Abdominal exam: Present: soft, normal bowel sounds. Absent: distended, tenderness, guarding, rebound, rigid - Rectal Rectal exam: Present: deferred - Extremities Exam Extremities exam: Present: normal inspection (status post left lower extremity below-knee amputation), full ROM, other (left upper extremity AV fistula, appropriate thrill.). Absent: calf tenderness - Back Exam Back exam: Present: normal inspection. Absent: tenderness, CVA tenderness (R), paraspinal tenderness - Neurological Exam Neurological exam: Present: alert, oriented X3, CN II-XII intact, other ( Extraocular movements intact. Tongue midline. No facial droop. Facial sensation intact to light touch in the V1, V2, V3 distribution bilaterally. 5 and 5 strength in 4 extremities.. Sensation is intact to light touch in 4 extremities.) - Psychiatric Psychiatric exam: Present: normal affect, normal mood - Skin Skin exam: Present: warm, dry, intact, normal color. Absent: rash ED Course Vital Signs 05/07/17 05/07/17 05/07/17 05:36 05:40 05:46 Temperature Pulse Rate 126 H 126 H 107 H Pulse Rate [ Anterior Bilateral Throughout] Respiratory 17 36 H Rate Respiratory Rate [Anterior Bilateral Throughout] Blood Pressure 168/94 168/94 O2 Sat by Pulse 100 100 Oximetry 05/07/17 05/07/17 05/07/17 05:50 05:52 06:01 Temperature Pulse Rate 110 H 104 H 118 H Pulse Rate [ 104 H Anterior Bilateral Throughout] Respiratory 36 H 28 H 30 H Rate Respiratory 24 Rate [Anterior Bilateral Throughout] Blood Pressure 168/94 168/94 O2 Sat by Pulse 100 100 95 Oximetry 05/07/17 05/07/17 05/07/17 06:06 06:15 06:30 Temperature Pulse Rate 103 H 98 H Pulse Rate [ 101 H Anterior Bilateral Throughout] Respiratory 31 H 27 H Rate Respiratory 24 Rate [Anterior Bilateral Throughout] Blood Pressure 145/68 131/75 O2 Sat by Pulse 99 99 Oximetry 05/07/17 05/07/17 05/07/17 06:45 07:00 07:15 Temperature Pulse Rate 100 H 93 H 91 H Pulse Rate [ Anterior Bilateral Throughout] Respiratory 26 H 23 21 Rate Respiratory Rate [Anterior Bilateral Throughout] Blood Pressure 91/50 99/48 97/49 O2 Sat by Pulse 96 98 98 Oximetry 05/07/17 05/07/17 05/07/17 07:30 07:45 08:00 Temperature Pulse Rate 89 86 83 Pulse Rate [ Anterior Bilateral Throughout] Respiratory 21 20 19 Rate Respiratory Rate [Anterior Bilateral Throughout] Blood Pressure 101/56 102/51 113/65 O2 Sat by Pulse 97 98 96 Oximetry 05/07/17 05/07/17 05/07/17 08:15 08:21 08:30 Temperature 96.8 F L Pulse Rate 82 84 81 Pulse Rate [ Anterior Bilateral Throughout] Respiratory 19 18 19 Rate Respiratory Rate [Anterior Bilateral Throughout] Blood Pressure 111/55 111/55 111/58 O2 Sat by Pulse 98 99 98 Oximetry 05/07/17 08:41 Temperature Pulse Rate 89 Pulse Rate [ Anterior Bilateral Throughout] Respiratory 23 Rate Respiratory Rate [Anterior Bilateral Throughout] Blood Pressure 111/58 O2 Sat by Pulse 98 Oximetry - Reevaluation(s) Reevaluation #1: 05/07/17 07:33 Case is presented to nephrology on-call, Dr. Wilson, he will arrange dialysis. ED Medical Decision Making - Lab Data Result diagrams: 05/08/17 04:00 05/08/17 04:00 Vital Signs 05/07/17 05/07/17 05/07/17 05:36 05:40 05:46 Pulse Rate 126 H 126 H 107 H Pulse Rate [ Anterior Bilateral Throughout] Respiratory 17 36 H Rate Respiratory Rate [Anterior Bilateral Throughout] Blood Pressure 168/94 168/94 O2 Sat by Pulse 100 100 Oximetry 05/07/17 05/07/17 05/07/17 05:50 05:52 06:01 Pulse Rate 110 H 104 H 118 H Pulse Rate [ 104 H Anterior Bilateral Throughout] Respiratory 36 H 28 H 30 H Rate Respiratory 24 Rate [Anterior Bilateral Throughout] Blood Pressure 168/94 168/94 O2 Sat by Pulse 100 100 95 Oximetry 05/07/17 05/07/17 05/07/17 06:06 06:15 06:30 Pulse Rate 103 H 98 H Pulse Rate [ 101 H Anterior Bilateral Throughout] Respiratory 31 H 27 H Rate Respiratory 24 Rate [Anterior Bilateral Throughout] Blood Pressure 145/68 131/75 O2 Sat by Pulse 99 99 Oximetry 05/07/17 05/07/17 06:45 07:00 Pulse Rate 100 H 93 H Pulse Rate [ Anterior Bilateral Throughout] Respiratory 26 H 23 Rate Respiratory Rate [Anterior Bilateral Throughout] Blood Pressure 91/50 99/48 O2 Sat by Pulse 96 98 Oximetry Lab Results 05/07/17 05/07/17 Range/Units 05:40 05:40 WBC 11.3 H (4.5-11.0) K/mm3 RBC 3.68 (3.65-5.03) M/mm3 Hgb 11.3 L (11.8-15.2) gm/dl Hct 35.5 (35.5-45.6) % MCV 97 H (84-94) fl MCH 31 (28-32) pg MCHC 32 (32-34) % RDW 17.5 H (13.2-15.2) % Plt Count 267 (140-440) K/mm3 Add Manual Diff Complete Total Counted 100 Seg Neuts % (Manual) 57.0 (40.0-70.0) % Band Neutrophils % 0 % Lymphocytes % (Manual) 36.0 H (13.4-35.0) % Reactive Lymphs % (Man) 0 % Monocytes % (Manual) 4.0 (0.0-7.3) % Eosinophils % (Manual) 2.0 (0.0-4.3) % Basophils % (Manual) 1.0 (0.0-1.8) % Metamyelocytes % 0 % Myelocytes % 0 % Promyelocytes % 0 % Blast Cells % 0 % Nucleated RBC % Not Reportable Seg Neutrophils # Man 6.4 (1.8-7.7) K/mm3 Band Neutrophils # 0.0 K/mm3 Lymphocytes # (Manual) 4.1 (1.2-5.4) K/mm3 Abs React Lymphs (Man) 0.0 K/mm3 Monocytes # (Manual) 0.5 (0.0-0.8) K/mm3 Eosinophils # (Manual) 0.2 (0.0-0.4) K/mm3 Basophils # (Manual) 0.1 (0.0-0.1) K/mm3 Metamyelocytes # 0.0 K/mm3 Myelocytes # 0.0 K/mm3 Promyelocytes # 0.0 K/mm3 Blast Cells # 0.0 K/mm3 WBC Morphology Not Reportable Hypersegmented Neuts Not Reportable Hyposegmented Neuts Not Reportable Hypogranular Neuts Not Reportable Smudge Cells Not Reportable Toxic Granulation Not Reportable Toxic Vacuolation Not Reportable Dohle Bodies Not Reportable Pelger-Huet Anomaly Not Reportable Rigo Rods Not Reportable Platelet Estimate Consistent w auto Clumped Platelets Not Reportable Plt Clumps, EDTA Not Reportable Large Platelets Not Reportable Giant Platelets Not Reportable Platelet Satelliting Not Reportable Plt Morphology Comment Not Reportable RBC Morphology Not Reportable Dimorphic RBCs Not Reportable Polychromasia Not Reportable Hypochromasia Not Reportable Poikilocytosis Not Reportable Anisocytosis Not Reportable Microcytosis Not Reportable Macrocytosis Not Reportable Spherocytes Not Reportable Pappenheimer Bodies Not Reportable Sickle Cells Not Reportable Target Cells Not Reportable Tear Drop Cells Not Reportable Ovalocytes Not Reportable Helmet Cells Not Reportable Calderon-Devine Bodies Not Reportable [place] Rings Not Reportable [place] Cells Not Reportable Bite Cells Not Reportable Crenated Cell Not Reportable Elliptocytes Not Reportable Acanthocytes (Spur) Not Reportable Rouleaux Not Reportable Hemoglobin C Crystals Not Reportable Schistocytes Not Reportable Malaria parasites Not Reportable Nicolas Bodies Not Reportable Hem Pathologist Commnt No Sodium 146 H (137-145) mmol/L Potassium 4.7 (3.6-5.0) mmol/L Chloride 100.1 (98-107) mmol/L Carbon Dioxide 25 (22-30) mmol/L Anion Gap 26 mmol/L BUN 61 H (9-20) mg/dL Creatinine 10.3 H (0.8-1.5) mg/dL Estimated GFR 6 ml/min BUN/Creatinine Ratio 6 % Glucose 162 H (75-100) mg/dL Calcium 10.0 (8.4-10.2) mg/dL Troponin T 0.126 H* (0.00-0.029) ng/mL NT-Pro-B Natriuret Pep > 55199 H (0-900) pg/mL Triglycerides 100 (2-149) mg/dL Cholesterol 155 (50-199) mg/dL LDL Cholesterol Direct 62 (50-130) mg/dL HDL Cholesterol 73 H (40-59) mg/dL Cholesterol/HDL Ratio 2.12 % - EKG Data -: EKG Interpreted by Wa - EKG Data 05/07/17 07:23 Sinus tachycardia, 104 bpm, normal axis, QTC prolonged, poor R-wave progression , multiple Q waves in the lateral leads, abnormal EKG, not morphologically consistent with ST elevation myocardial infarction, not having chest pain, appears unchanged from prior from September 2016. - Radiology Data Radiology results: report reviewed, image reviewed X-ray of the chest demonstrates congestive heart failure/pulmonary edema. There is no acute infiltrate appreciated. - Medical Decision Making Differential diagnosis, including not limited to: Flash pulmonary edema, congestive heart failure, hyperkalemia, azotemia Assessment and plan: 71-year-old male with clinical flash pulmonary edema. He is afebrile and initially diaphoretic and quite hypertensive. He was given nebulizer therapy prior to my evaluation. Patient aggressively managed with IV nitroglycerin for preload and afterload reduction, and BiPAP therapy. Patient makes scant urine, and is therefore given 100 mg of Lasix. Not having chest pain, EKG abnormal but unchanged from prior, elevated troponin is appreciated, this is likely consistent with patient's past history of renal disease. Patient will require urgent dialysis, nephrology has been paged, case is presented to the Hospital physician, Dr. Tadeo, who accepted the patient to the medical service. Patient reevaluated multiple times by myself while in the department, indicates he is much improved on BiPAP and nitroglycerin drip. Subtly decreased blood pressure in the high 90s appreciated, however patient's work of breathing is much improved, so this is medically acceptable. Critical Care Time: Yes Critical care time in (mins) excluding proc time.: 35 Critical care attestation.: If time is entered above; I have spent that time in minutes in the direct care of this critically ill patient, excluding procedure time. ED Disposition Clinical Impression: Pulmonary edema, Acute respiratory distress, ESRD (end stage renal disease) on dialysis Disposition: OP ADMIT IP TO THIS HOSP Is pt being admited?: Yes Condition: Good
[2017-05-07 06:23] LABS: Anion Gap 26 mmol/L; BUN/Creatinine Ratio 6; Blood Urea Nitrogen 61 mg/dL (9-20); Carbon Dioxide 25 mmol/L (22-30); Chloride 100.1 mmol/L (98-107); Glucose 162 mg/dL (75-100); Potassium 4.7 mmol/L (3.6-5.0); Sodium 146 mmol/L (137-145)
[2017-05-07 06:46] LABS: Cholesterol 155 mg/dL (50-199); HDL Cholesterol 73 mg/dL (40-59); LDL Cholesterol,Direct 62 mg/dL (50-130); Triglycerides 100 mg/dL (2-149)
[2017-05-07 06:53] LABS: Blastocytes % (Manual) 0 %
[2017-05-07 06:54] LABS: Diff Status Complete; Platelet Estimate Consistent w Auto
[2017-05-07] MEDS ORDERED: TYLENOL PO PRN (07:47)
--- NOTE | 2017-05-07 07:53 | History and Physical Report ---
<KWABENA GUTIERREZ - Last Filed: 05/07/17 15:08> History of Present Illness Date of examination: 05/07/17 Date of admission: 05/07/2017 Chief complaint: shortness of breath History of present illness: Patient a 71-year-old male with past medical history of end- stage renal disease on HD MWD, hypertension, diabetes mellitus, congestive heart failure, PCI to LAD on 08/18, hyperlipidemia, peripheral vascular disease, left BKA and diabetes mellitus who presents to the emergency department with complaining of shortness of breath.Until yesterday patient was at his normal baseline state of health. Patient developed difficulty of breathing yesterday and he has had progressive worsening of shortness of breath. This morning while going to his regular hemodialysis, he felt like he could not catch his breath and got worried so called 911 and brought him to the Emergency Department. He is not on oxygen at home. Patient last dialysis was on Friday 05/04 . Patient denies he has had no fevers, chills, or night sweats. No hx of recurrent pneumonia. He has no sick contact, TB exposure. Patient currently on BiPAP; therefore unable to obtain detail history. Past History Past Medical History: diabetes, GERD, heart failure, hypertension, hyperlipidemia, PVD, other ( ) Past Surgical History: Other (failure, PCI to LAD on 08/18, left BKA ) Social history: denies: smoking, alcohol abuse Family history: diabetes, hypertension Medications and Allergies Allergies Allergy/AdvReac Type Severity Reaction Status Date / Time No Known Allergies Allergy Verified 08/04/16 17:01 Home Medications Medication Instructions Recorded Confirmed Last Taken Type Cinacalcet HCl [Sensipar] 60 mg PO BID 08/04/16 05/07/17 Unknown History Sucroferric Oxyhydroxide [Velphoro] 1,000 mg PO QAC 08/04/16 05/07/17 Unknown History Aspirin [Aspirin BABY CHEW TAB] 81 mg PO QDAY #30 tab.chew 08/08/16 05/07/17 Unknown Rx Carvedilol [Coreg] 12.5 mg PO BID #60 tablet 08/08/16 05/07/17 Unknown Rx AtorvaSTATin [Lipitor] 40 mg PO QHS 05/07/17 05/07/17 Unknown History Ticagrelor [Brilinta] 90 mg PO BID 05/07/17 05/07/17 Unknown History Losartan [Cozaar] 25 mg PO QHS #30 tablet 05/08/17 Unknown Rx Active Meds: Active Medications Nitroglycerin/Dextrose (Tridil Drip 50mg/250ml) 50 mg in 250 mls @ 3 mls/hr IV TITR ONE; 10 MCG/MIN PRN Reason: Protocol Stop: 05/10/17 17:25 Last Titration: 05/07/17 07:11 Dose: 10 mcg/min, 3 mls/hr Review of Systems Constitutional: no weight loss, no weight gain, no fever, no chills Ears, nose, mouth and throat: no decreased hearing, no nose pain, no nasal congestion, no nasal discharge Cardiovascular: shortness of breath, dyspnea on exertion, paroxysmal nocturnal dyspnea, no chest pain, no orthopnea, no palpitations, no rapid/irregular heart beat Respiratory: cough, shortness of breath, dyspnea on exertion Gastrointestinal: no vomiting, no diarrhea, no constipation Rectal: no incontinence, no bleeding Musculoskeletal: no shooting arm pain, no arm numbness/tingling, no low back pain, no shooting leg pain Integumentary: no redness, no sores, no wounds, no jaundice Neurological: no numbness, no tingling, no seizures, no syncope, no tremors Psychiatric: no change in appetite, no change in libido, no suicidal ideation Endocrine: no polyphagia, no excessive thirst, no polydipsia, no polyuria Hematologic/Lymphatic: no easy bruising, no easy bleeding Allergic/Immunologic: no urticaria, no allergic rhinitis Exam - Constitutional Vitals: Temp Pulse Resp BP Pulse Ox 93 H 23 99/48 98 05/07/17 07:00 05/07/17 07:00 05/07/17 07:00 05/07/17 07:00 General appearance: Present: no acute distress - EENT Eyes: Present: PERRL ENT: hearing intact, clear oral mucosa - Neck Neck: Present: supple - Respiratory Respiratory effort: normal Respiratory: bilateral: rales, wheezing - Cardiovascular Rhythm: regular Heart Sounds: Present: S1 & S2 - Abdominal General gastrointestinal: Present: soft, non-tender Male genitourinary: Present: deferred - Rectal Rectal Exam: deferred - Integumentary Integumentary: Present: clear, warm, dry - Musculoskeletal Musculoskeletal: strength equal bilaterally - Psychiatric Psychiatric: appropriate mood/affect - Neurologic Neurologic: moves all extremities - Allied Health Allied health notes reviewed: nursing Results - Labs CBC & Chem 7: 05/07/17 05:40 05/07/17 05:40 Labs: Laboratory Last Values WBC 11.3 K/mm3 (4.5-11.0) H 05/07/17 05:40 RBC 3.68 M/mm3 (3.65-5.03) 05/07/17 05:40 Hgb 11.3 gm/dl (11.8-15.2) L 05/07/17 05:40 Hct 35.5 % (35.5-45.6) 05/07/17 05:40 MCV 97 fl (84-94) H 05/07/17 05:40 MCH 31 pg (28-32) 05/07/17 05:40 MCHC 32 % (32-34) 05/07/17 05:40 RDW 17.5 % (13.2-15.2) H 05/07/17 05:40 Plt Count 267 K/mm3 (140-440) 05/07/17 05:40 Add Manual Diff Complete 05/07/17 05:40 Total Counted 100 05/07/17 05:40 Seg Neuts % (Manual) 57.0 % (40.0-70.0) 05/07/17 05:40 Band Neutrophils % 0 % 05/07/17 05:40 Lymphocytes % (Manual) 36.0 % (13.4-35.0) H 05/07/17 05:40 Reactive Lymphs % (Man) 0 % 05/07/17 05:40 Monocytes % (Manual) 4.0 % (0.0-7.3) 05/07/17 05:40 Eosinophils % (Manual) 2.0 % (0.0-4.3) 05/07/17 05:40 Basophils % (Manual) 1.0 % (0.0-1.8) 05/07/17 05:40 Metamyelocytes % 0 % 05/07/17 05:40 Myelocytes % 0 % 05/07/17 05:40 Promyelocytes % 0 % 05/07/17 05:40 Blast Cells % 0 % 05/07/17 05:40 Nucleated RBC % Not Reportable 05/07/17 05:40 Seg Neutrophils # Man 6.4 K/mm3 (1.8-7.7) 05/07/17 05:40 Band Neutrophils # 0.0 K/mm3 05/07/17 05:40 Lymphocytes # (Manual) 4.1 K/mm3 (1.2-5.4) 05/07/17 05:40 Abs React Lymphs (Man) 0.0 K/mm3 05/07/17 05:40 Monocytes # (Manual) 0.5 K/mm3 (0.0-0.8) 05/07/17 05:40 Eosinophils # (Manual) 0.2 K/mm3 (0.0-0.4) 05/07/17 05:40 Basophils # (Manual) 0.1 K/mm3 (0.0-0.1) 05/07/17 05:40 Metamyelocytes # 0.0 K/mm3 05/07/17 05:40 Myelocytes # 0.0 K/mm3 05/07/17 05:40 Promyelocytes # 0.0 K/mm3 05/07/17 05:40 Blast Cells # 0.0 K/mm3 05/07/17 05:40 WBC Morphology Not Reportable 05/07/17 05:40 Hypersegmented Neuts Not Reportable 05/07/17 05:40 Hyposegmented Neuts Not Reportable 05/07/17 05:40 Hypogranular Neuts Not Reportable 05/07/17 05:40 Smudge Cells Not Reportable 05/07/17 05:40 Toxic Granulation Not Reportable 05/07/17 05:40 Toxic Vacuolation Not Reportable 05/07/17 05:40 Dohle Bodies Not Reportable 05/07/17 05:40 Pelger-Huet Anomaly Not Reportable 05/07/17 05:40 Rigo Rods Not Reportable 05/07/17 05:40 Platelet Estimate Consistent w auto 05/07/17 05:40 Clumped Platelets Not Reportable 05/07/17 05:40 Plt Clumps, EDTA Not Reportable 05/07/17 05:40 Large Platelets Not Reportable 05/07/17 05:40 Giant Platelets Not Reportable 05/07/17 05:40 Platelet Satelliting Not Reportable 05/07/17 05:40 Plt Morphology Comment Not Reportable 05/07/17 05:40 RBC Morphology Not Reportable 05/07/17 05:40 Dimorphic RBCs Not Reportable 05/07/17 05:40 Polychromasia Not Reportable 05/07/17 05:40 Hypochromasia Not Reportable 05/07/17 05:40 Poikilocytosis Not Reportable 05/07/17 05:40 Anisocytosis Not Reportable 05/07/17 05:40 Microcytosis Not Reportable 05/07/17 05:40 Macrocytosis Not Reportable 05/07/17 05:40 Spherocytes Not Reportable 05/07/17 05:40 Pappenheimer Bodies Not Reportable 05/07/17 05:40 Sickle Cells Not Reportable 05/07/17 05:40 Target Cells Not Reportable 05/07/17 05:40 Tear Drop Cells Not Reportable 05/07/17 05:40 Ovalocytes Not Reportable 05/07/17 05:40 Helmet Cells Not Reportable 05/07/17 05:40 [place] Bodies Not Reportable 05/07/17 05:40 [place] Rings Not Reportable 05/07/17 05:40 [place] Cells Not Reportable 05/07/17 05:40 Bite Cells Not Reportable 05/07/17 05:40 Crenated Cell Not Reportable 05/07/17 05:40 Elliptocytes Not Reportable 05/07/17 05:40 Acanthocytes (Spur) Not Reportable 05/07/17 05:40 Rouleaux Not Reportable 05/07/17 05:40 Hemoglobin C Crystals Not Reportable 05/07/17 05:40 Schistocytes Not Reportable 05/07/17 05:40 Malaria parasites Not Reportable 05/07/17 05:40 Nicolas Bodies Not Reportable 05/07/17 05:40 Hem Pathologist Commnt No 05/07/17 05:40 Sodium 146 mmol/L (137-145) H 05/07/17 05:40 Potassium 4.7 mmol/L (3.6-5.0) 05/07/17 05:40 Chloride 100.1 mmol/L (98-107) 05/07/17 05:40 Carbon Dioxide 25 mmol/L (22-30) 05/07/17 05:40 Anion Gap 26 mmol/L 05/07/17 05:40 BUN 61 mg/dL (9-20) H 05/07/17 05:40 Creatinine 10.3 mg/dL (0.8-1.5) H 05/07/17 05:40 Estimated GFR 6 ml/min 05/07/17 05:40 BUN/Creatinine Ratio 6 % 05/07/17 05:40 Glucose 162 mg/dL (75-100) H 05/07/17 05:40 Calcium 10.0 mg/dL (8.4-10.2) 05/07/17 05:40 Troponin T 0.126 ng/mL (0.00-0.029) H* 05/07/17 05:40 NT-Pro-B Natriuret Pep > 78219 pg/mL (0-900) H 05/07/17 05:40 Triglycerides 100 mg/dL (2-149) 05/07/17 05:40 Cholesterol 155 mg/dL (50-199) 05/07/17 05:40 LDL Cholesterol Direct 62 mg/dL (50-130) 05/07/17 05:40 HDL Cholesterol 73 mg/dL (40-59) H 05/07/17 05:40 Cholesterol/HDL Ratio 2.12 % 05/07/17 05:40 Assessment and Plan Assessment and plan: Patient a 71-year-old male with past medical history of end- stage renal disease on HD MWD, hypertension, congestive heart failure, PCI to LAD on 08/18, hyperlipidemia, peripheral vascular disease, left BKA and diabetes mellitus who presents to the emergency department with complaining of shortness of breath. Acute respiratory failure with hypoxia Patient oxygen saturation improved with BiPAP; currently on BiPAP 35%, SPO2 98% . No acute respiratory distress noted. Aggressive Nebulizers/Inhalers ABG when necessary Oxygen supplement Supportive care Acute on chronic diastolic Congestive heart failure/pulmonary edema D/C nitroglycerin drip. Echocardiogram on 08/18 with EF 35-40%, diastolic dysfunction dialysis per nephrology and continue coreg, losartan Strict I&O's and daily weights Low-sodium/cardiac diet/fluid restriction Closely monitor electrolytes Cardiology evaluation End-stage renal disease on dialysis Patient will have urgent dialysis today Nephrology consulted Hyperkalemia Patient will have urgent dialysis today that will correct it. Diabetes mellitus Accu-Chek before meals and at bedtime Sliding scale insulin/NovoLog ADA carbohydrate consistent diet Hypertensive urgency Continue home antihypertensive medications Closely monitor blood pressure Leukocytosis Most likely nonreactive, no source of infection Closely monitor electrolytes Elevated troponin Most Likely due to ESRD; all pervious level were elevated Cardiology consulted Mild hypernatremia Closely monitor electrolytes DVT prophylaxis Heparinis Advance Directives: Yes VTE prophylaxis?: Chemical Contraindication Mechanical VTE Prophylaxis: Treatment Not Indicated Plan of care discussed with patient/family: Yes <VICKY ELLISON O - Last Filed: 05/08/17 15:45> History of Present Illness Date of admission: 05/07/17 07:47 Medications and Allergies Active Meds: Active Medications Acetaminophen (Tylenol) 650 mg PO Q4H PRN PRN Reason: Pain MILD(1-3)/Fever >100.5/IYER Aspirin (Baby Aspirin) 81 mg PO QDAY [facility] Last Admin: 05/08/17 10:59 Dose: 81 mg Atorvastatin Calcium (Lipitor) 40 mg PO QHS [facility] Last Admin: 05/07/17 22:52 Dose: 40 mg Bisacodyl (Dulcolax) 10 mg SD QDAY PRN PRN Reason: Constipation unrelieved by MOM Carvedilol (Coreg) 12.5 mg PO BID [facility] Last Admin: 05/08/17 10:58 Dose: 12.5 mg Cinacalcet (Sensipar) 60 mg PO BID [facility] Last Admin: 05/08/17 10:59 Dose: 60 mg Dextrose (D50w (25gm) Syringe) 50 ml IV PRN PRN PRN Reason: Hypoglycemia Heparin Sodium (Porcine) (Heparin) 5,000 unit SUB-Q Q12HR [facility] Last Admin: 05/08/17 10:59 Dose: 5,000 unit Sodium Chloride (Nacl 0.9%) 100 mls @ 999 mls/hr IV [facility]ESKA PRN PRN Reason: Hypotension Insulin Aspart (Novolog) 0 units SUB-Q [facility] PRN Reason: Protocol Last Admin: 05/08/17 13:03 Dose: Not Given Insulin Aspart (Novolog) 0 units SUB-Q QHS [facility] PRN Reason: Protocol Last Admin: 05/07/17 23:00 Dose: 3 units Isosorbide Mononitrate (Imdur) 30 mg PO QDAY [facility] Last Admin: 05/08/17 10:59 Dose: 30 mg Losartan Potassium (Cozaar) 50 mg PO QHS [facility] Last Admin: 05/07/17 22:53 Dose: Not Given Miscellaneous Medication (Sucroferric Oxyhydroxide [Velphoro]) 1,000 mg PO AC [facility]ACKEL[facility] Ticagrelor (Brilinta) 90 mg PO BID [facility] Last Admin: 05/08/17 10:58 Dose: 90 mg Exam - Constitutional Vitals: Temp Pulse Resp BP Pulse Ox 98.2 F 85 18 129/64 98 05/08/17 07:42 05/08/17 07:42 05/08/17 07:42 05/08/17 10:59 05/08/17 07:42 Results - Labs CBC & Chem 7: 05/08/17 04:00 05/08/17 04:00 Labs: Laboratory Last Values WBC 6.0 K/mm3 (4.5-11.0) 05/08/17 04:00 RBC 3.13 M/mm3 (3.65-5.03) L 05/08/17 04:00 Hgb 9.8 gm/dl (11.8-15.2) L 05/08/17 04:00 Hct 29.9 % (35.5-45.6) L 05/08/17 04:00 MCV 96 fl (84-94) H 05/08/17 04:00 MCH 31 pg (28-32) 05/08/17 04:00 MCHC 33 % (32-34) 05/08/17 04:00 RDW 17.4 % (13.2-15.2) H 05/08/17 04:00 Plt Count 206 K/mm3 (140-440) 05/08/17 04:00 Lymph % (Auto) 19.6 % (13.4-35.0) 05/08/17 04:00 [place] % (Auto) 13.1 % (0.0-7.3) H 05/08/17 04:00 Eos % (Auto) 0.3 % (0.0-4.3) 05/08/17 04:00 Baso % (Auto) 0.8 % (0.0-1.8) 05/08/17 04:00 Lymph # 1.2 K/mm3 (1.2-5.4) 05/08/17 04:00 [place] # 0.8 K/mm3 (0.0-0.8) 05/08/17 04:00 Eos # 0.0 K/mm3 (0.0-0.4) 05/08/17 04:00 Baso # 0.0 K/mm3 (0.0-0.1) 05/08/17 04:00 Add Manual Diff Complete 05/07/17 05:40 Total Counted 100 05/07/17 05:40 Seg Neutrophils % 66.2 % (40.0-70.0) 05/08/17 04:00 Seg Neuts % (Manual) 57.0 % (40.0-70.0) 05/07/17 05:40 Band Neutrophils % 0 % 05/07/17 05:40 Lymphocytes % (Manual) 36.0 % (13.4-35.0) H 05/07/17 05:40 Reactive Lymphs % (Man) 0 % 05/07/17 05:40 Monocytes % (Manual) 4.0 % (0.0-7.3) 05/07/17 05:40 Eosinophils % (Manual) 2.0 % (0.0-4.3) 05/07/17 05:40 Basophils % (Manual) 1.0 % (0.0-1.8) 05/07/17 05:40 Metamyelocytes % 0 % 05/07/17 05:40 Myelocytes % 0 % 05/07/17 05:40 Promyelocytes % 0 % 05/07/17 05:40 Blast Cells % 0 % 05/07/17 05:40 Nucleated RBC % Not Reportable 05/07/17 05:40 Seg Neutrophils # 4.0 K/mm3 (1.8-7.7) 05/08/17 04:00 Seg Neutrophils # Man 6.4 K/mm3 (1.8-7.7) 05/07/17 05:40 Band Neutrophils # 0.0 K/mm3 05/07/17 05:40 Lymphocytes # (Manual) 4.1 K/mm3 (1.2-5.4) 05/07/17 05:40 Abs React Lymphs (Man) 0.0 K/mm3 05/07/17 05:40 Monocytes # (Manual) 0.5 K/mm3 (0.0-0.8) 05/07/17 05:40 Eosinophils # (Manual) 0.2 K/mm3 (0.0-0.4) 05/07/17 05:40 Basophils # (Manual) 0.1 K/mm3 (0.0-0.1) 05/07/17 05:40 Metamyelocytes # 0.0 K/mm3 05/07/17 05:40 Myelocytes # 0.0 K/mm3 05/07/17 05:40 Promyelocytes # 0.0 K/mm3 05/07/17 05:40 Blast Cells # 0.0 K/mm3 05/07/17 05:40 WBC Morphology Not Reportable 05/07/17 05:40 Hypersegmented Neuts Not Reportable 05/07/17 05:40 Hyposegmented Neuts Not Reportable 05/07/17 05:40 Hypogranular Neuts Not Reportable 05/07/17 05:40 Smudge Cells Not Reportable 05/07/17 05:40 Toxic Granulation Not Reportable 05/07/17 05:40 Toxic Vacuolation Not Reportable 05/07/17 05:40 Dohle Bodies Not Reportable 05/07/17 05:40 Pelger-Huet Anomaly Not Reportable 05/07/17 05:40 Rigo Rods Not Reportable 05/07/17 05:40 Platelet Estimate Consistent w auto 05/07/17 05:40 Clumped Platelets Not Reportable 05/07/17 05:40 Plt Clumps, EDTA Not Reportable 05/07/17 05:40 Large Platelets Not Reportable 05/07/17 05:40 Giant Platelets Not Reportable 05/07/17 05:40 Platelet Satelliting Not Reportable 05/07/17 05:40 Plt Morphology Comment Not Reportable 05/07/17 05:40 RBC Morphology Not Reportable 05/07/17 05:40 Dimorphic RBCs Not Reportable 05/07/17 05:40 Polychromasia Not Reportable 05/07/17 05:40 Hypochromasia Not Reportable 05/07/17 05:40 Poikilocytosis Not Reportable 05/07/17 05:40 Anisocytosis Not Reportable 05/07/17 05:40 Microcytosis Not Reportable 05/07/17 05:40 Macrocytosis Not Reportable 05/07/17 05:40 Spherocytes Not Reportable 05/07/17 05:40 Pappenheimer Bodies Not Reportable 05/07/17 05:40 Sickle Cells Not Reportable 05/07/17 05:40 Target Cells Not Reportable 05/07/17 05:40 Tear Drop Cells Not Reportable 05/07/17 05:40 Ovalocytes Not Reportable 05/07/17 05:40 Helmet Cells Not Reportable 05/07/17 05:40 Calderon-Cromp[place] Bodies Not Reportable 05/07/17 05:40 [place] Rings Not Reportable 05/07/17 05:40 [place] Cells Not Reportable 05/07/17 05:40 Bite Cells Not Reportable 05/07/17 05:40 Crenated Cell Not Reportable 05/07/17 05:40 Elliptocytes Not Reportable 05/07/17 05:40 Acanthocytes (Spur) Not Reportable 05/07/17 05:40 Rouleaux Not Reportable 05/07/17 05:40 Hemoglobin C Crystals Not Reportable 05/07/17 05:40 Schistocytes Not Reportable 05/07/17 05:40 Malaria parasites Not Reportable 05/07/17 05:40 Nicolas Bodies Not Reportable 05/07/17 05:40 Hem Pathologist Commnt No 05/07/17 05:40 Sodium 146 mmol/L (137-145) H 05/08/17 04:00 Potassium 4.0 mmol/L (3.6-5.0) 05/08/17 04:00 Chloride 102.4 mmol/L (98-107) 05/08/17 04:00 Carbon Dioxide 28 mmol/L (22-30) 05/08/17 04:00 Anion Gap 20 mmol/L 05/08/17 04:00 BUN 37 mg/dL (9-20) H 05/08/17 04:00 Creatinine 7.3 mg/dL (0.8-1.5) H 05/08/17 04:00 Estimated GFR 9 ml/min 05/08/17 04:00 BUN/Creatinine Ratio 5 % 05/08/17 04:00 Glucose 82 mg/dL (75-100) 05/08/17 04:00 POC Glucose 161 (70-105) H 05/08/17 11:47 Calcium 9.3 mg/dL (8.4-10.2) 05/08/17 04:00 Total Creatine Kinase 86 units/L (55-170) 05/07/17 17:23 CK-MB (CK-2) 2.9 ng/mL (0.0-4.0) 05/07/17 17:23 CK-MB (CK-2) Rel Index 3.3 (0-4) 05/07/17 17:23 Troponin T 0.146 ng/mL (0.00-0.029) H* 05/07/17 17:23 NT-Pro-B Natriuret Pep > 45356 pg/mL (0-900) H 05/07/17 05:40 Triglycerides 100 mg/dL (2-149) 05/07/17 05:40 Cholesterol 155 mg/dL (50-199) 05/07/17 05:40 LDL Cholesterol Direct 62 mg/dL (50-130) 05/07/17 05:40 HDL Cholesterol 73 mg/dL (40-59) H 05/07/17 05:40 Cholesterol/HDL Ratio 2.12 % 05/07/17 05:40 Hepatitis A IgM Ab Non-reactive (NonReactive) 05/07/17 05:40 Hep Bs Antigen Non-reactive (Negative) 05/07/17 05:40 Hep B Core IgM Ab Non-reactive (NonReactive) 05/07/17 05:40 Hepatitis C Antibody Non-reactive (NonReactive) 05/07/17 05:40 Assessment and Plan Assessment and plan: I saw and evaluated the patient. I agree with the findings and the plan of care as documented in the Nurse Practitioner's~note, with the following corrections and additions. Patient with ESRD on dialysis presents with shortness of breath. He has pulmonary edema, hyperkalemia. For dialysis today.
[2017-05-07] MEDS ORDERED: D50W (25GM) Syringe IV PRN (08:00)
[2017-05-07] MEDS ORDERED: PROCRIT IV PRN (09:52)
--- NOTE | 2017-05-07 09:58 | Consultation ---
History of Present Illness - Reason for Consult Consult date: 05/07/17 end stage renal disease, accelerated hypertension Requesting physician: VICKY COURTNEY - History of Present Illness This is a 71-year-old male who was previously unknown to this provider. Past medical history includes heart disease with stents, end-stage renal disease on dialysis Sunday, Sunday, Sunday, hyperlipidemia, peripheral vascular disease , history of left lower extremity below-knee amputation. Nephrology: Dr. Kristina Christie The patient presents to the ER with a complaint of pain with shortness of breath. The shortness of breath is constant. It does not radiate anywhere. It worsens with physical exertion. It decreases in the emergency room with rest , nitroglycerin, and BiPAP therapy. Patient endorses no chest pain. There is no leg pain. He denies dietary instructions ROS: Stated complaint: ITZEL Other details as noted in HPI - Past Medical History Previous Medical History?: Yes Hx Hypertension: Yes Hx Heart Attack/AMI: Yes Hx Congestive Heart Failure: Yes Hx Diabetes: Yes Hx Renal Disease: Yes (dialysis M/W/F) Hx Arthritis: No Hx HIV: No Additional medical history: Heart attack was treated with stent placement. - Surgical History Past Surgical History?: Yes Additional Surgical History: BKA left leg, right large toe amputated 07/21, hernia, left A/V graft. Has AV fistula left upper arm. - Social History Smoking Status: Never Smoker Substance Use Type: None - Past History Family history: hypertension Medications and Allergies Allergies Allergy/AdvReac Type Severity Reaction Status Date / Time No Known Allergies Allergy Verified 08/04/16 17:01 Home Medications Medication Instructions Recorded Confirmed Last Taken Type Cinacalcet HCl [Sensipar] 60 mg PO BID 08/04/16 05/07/17 Unknown History Losartan [Cozaar] 50 mg PO QHS 08/04/16 05/07/17 08/03/16 History Sucroferric Oxyhydroxide [Velphoro] 1,000 mg PO QAC 08/04/16 05/07/17 Unknown History Aspirin [Aspirin BABY CHEW TAB] 81 mg PO QDAY #30 tab.chew 08/08/16 05/07/17 Unknown Rx Carvedilol [Coreg] 12.5 mg PO BID #60 tablet 08/08/16 05/07/17 Unknown Rx Ticagrelor [Brilinta] 90 mg PO BID #60 tablet 08/08/16 05/07/17 Unknown Rx AtorvaSTATin [Lipitor] 40 mg PO QHS 05/07/17 05/07/17 Unknown History Losartan Potassium [Losartan 50 mg PO QHS 05/07/17 05/07/17 Unknown History Potassium] Sucroferric Oxyhydroxide [Velphoro] 1,000 mg PO AC 05/07/17 05/07/17 Unknown History Ticagrelor [Brilinta] 90 mg PO BID 05/07/17 05/07/17 Unknown History Active Meds: Active Medications Acetaminophen (Tylenol) 650 mg PO Q4H PRN PRN Reason: Pain MILD(1-3)/Fever >100.5/IYER Aspirin (Baby Aspirin) 81 mg PO QDAY [facility] Atorvastatin Calcium (Lipitor) 40 mg PO QHS JACKELINE Bisacodyl (Dulcolax) 10 mg MS QDAY PRN PRN Reason: Constipation unrelieved by MOM Carvedilol (Coreg) 12.5 mg PO BID JACKELINE Cinacalcet (Sensipar) 60 mg PO BID JACKELINE Dextrose (D50w (25gm) Syringe) 50 ml IV PRN PRN PRN Reason: Hypoglycemia Heparin Sodium (Porcine) (Heparin) 5,000 unit SUB-Q Q12HR [facility]ACKELINE Sodium Chloride (Nacl 0.9%) 100 mls @ 999 mls/hr IV [facility] PRN PRN Reason: Hypotension Insulin Aspart (Novolog) 0 units SUB-Q AC [facility] PRN Reason: Protocol Insulin Aspart (Novolog) 0 units SUB-Q QHS [facility] PRN Reason: Protocol Losartan Potassium (Cozaar) 50 mg PO QHS [facility] Miscellaneous Medication (Sucroferric Oxyhydroxide [Velphoro]) 1,000 mg PO AC JACKELINE Ticagrelor (Brilinta) 90 mg PO BID [facility] Exam - Vital Signs Vital signs: Vital Signs Pulse Resp 126 H 17 05/07/17 05:36 05/07/17 05:36 - Physical Exam Narrative exam: General Limitations: Physical Limitation General appearance: alert, in distress, obese - Head Head exam: Present: atraumatic, normocephalic - Eye Eye exam: Present: normal appearance - ENT ENT exam: Present: normal exam, normal orophraynx, mucous membranes moist, normal external ear exam - Neck Neck exam: Present: normal inspection, full ROM - Respiratory Respiratory exam: Present: respiratory distress, rales, rhonchi - Cardiovascular Cardiovascular Exam: Present: normal rhythm, tachycardia, normal heart sounds. Absent: systolic murmur, diastolic murmur, rubs, gallop - GI/Abdominal GI/Abdominal exam: Present: soft, normal bowel sounds. Absent: distended, tenderness, guarding, rebound, rigid - Rectal Rectal exam: Present: deferred - Extremities Exam Extremities exam: Present: normal inspection (status post left lower extremity below-knee amputation), full ROM, other (left upper extremity AV fistula, appropriate thrill.). Absent: calf tenderness - Back Exam Back exam: Present: normal inspection. Absent: tenderness, CVA tenderness (R), paraspinal tenderness - Neurological Exam Neurological exam: Present: alert, oriented X3, CN II-XII intact, other ( Extraocular movements intact. Tongue midline. No facial droop. Facial sensation intact to light touch in the V1, V2, V3 distribution bilaterally. 5 and 5 strength in 4 extremities.. Sensation is intact to light touch in 4 extremities.) - Psychiatric Psychiatric exam: Present: normal affect, normal mood - Skin Skin exam: Present: warm, dry, intact, normal color. Absent: rash Results - Lab Results 05/07/17 05:40 05/07/17 05:40 Most recent lab results Calcium 10.0 mg/dL (8.4-10.2) 05/07/17 05:40 Assessment and Plan Impression: * ESRD * Accelerated HTN * Volume overload * Hyperparathyroidism Plan: * HD qMWF * uf as tolerated * strict i/os * bp control * advise on fluid and dialysis compliance * renal diet
[2017-05-07] MEDS ORDERED: NON-FORMULARY (Cinacalcet Hcl [Sensipar] 60 MG) PO SCH (10:00)
[2017-05-07] MEDS ORDERED: DULCOLAX PR PRN (10:00)
[2017-05-07] MEDS ORDERED: NACL 0.9% 100 ML IV PRN (11:00)
[2017-05-07] MEDS: BABY ASPIRIN PO SCH ×2 (11:30→22:52)
[2017-05-07] MEDS: SENSIPAR PO SCH ×2 (11:30→22:52)
[2017-05-07] MEDS: COREG PO SCH ×2 (11:30→22:53)
[2017-05-07] MEDS ORDERED: SUCROFERRIC OXYHYDROXIDE 1000 MG PO SCH (11:30)
[2017-05-07] MEDS: BRILINTA PO SCH ×2 (11:30→22:52)
[2017-05-07] MEDS: NOVOLOG SUB-Q SCH ×2 (11:30→16:30)
[2017-05-07] MEDS: HEPARIN SUB-Q SCH ×2 (11:30→22:54)
--- NOTE | 2017-05-07 16:21 | Consultation ---
History of Present Illness Consult date: 05/07/17 Requesting physician: KWABENA GUTIERREZ Consult reason: congestive heart failure History of present illness: The pt is a 71 y/o male with a past medical history significant for CAD, s/p AMI with PCI of mid LAD with 2 JADE (2.75 x 22 and a 2.5 x 14 overlapping) on 08/04/2016, ICMP, PVD s/p left BKA and right foot great toe amputation, ESRD on HD (MWF schedule), HTN, HLP, DM. He is followed in our office by Dr. Bob. He presented with complaints of SOB and orthopnea since today at 2AM. He also c/o some RLE swelling since yesterday evening. He states he was sleeping this morning when his SOB suddenly began. He reports that on Sunday, he ate 2 slices of pizza, which he usually avoids. Otherwise, he reports compliance with his medication regimen, fluid restriction, and HD. He denies any chest pain, palpitations, n/v, diaphoresis, dizziness or syncope. Admission CXR showed pulmonary edema and pt was placed on BiPAP and nitro gtt following arrival in ED, admission BP 168/94. On evaluation, pt is off nitro gtt and BiPAP and is on O2 via NC. Echo 08/04/2016 showed EF 35-40%, abnormal diastolic function. LHC 08/04/2016 showed EF 30 - 35%, PCI of mid LAD with 2 JADE. Past History Past Medical History: CAD, diabetes, GERD, heart failure, hypertension, hyperlipidemia, PVD, other ( ) Past Surgical History: Other (failure, PCI to LAD on 08/18, left BKA ) Social history: denies: smoking, alcohol abuse Family history: diabetes, hypertension Medications and Allergies Allergies Allergy/AdvReac Type Severity Reaction Status Date / Time No Known Allergies Allergy Verified 08/04/16 17:01 Home Medications Medication Instructions Recorded Confirmed Last Taken Type Cinacalcet HCl [Sensipar] 60 mg PO BID 08/04/16 05/07/17 Unknown History Losartan [Cozaar] 50 mg PO QHS 08/04/16 05/07/17 08/03/16 History Sucroferric Oxyhydroxide [Velphoro] 1,000 mg PO QAC 08/04/16 05/07/17 Unknown History Aspirin [Aspirin BABY CHEW TAB] 81 mg PO QDAY #30 tab.chew 08/08/16 05/07/17 Unknown Rx Carvedilol [Coreg] 12.5 mg PO BID #60 tablet 08/08/16 05/07/17 Unknown Rx Ticagrelor [Brilinta] 90 mg PO BID #60 tablet 08/08/16 05/07/17 Unknown Rx AtorvaSTATin [Lipitor] 40 mg PO QHS 05/07/17 05/07/17 Unknown History Losartan Potassium [Losartan 50 mg PO QHS 05/07/17 05/07/17 Unknown History Potassium] Sucroferric Oxyhydroxide [Velphoro] 1,000 mg PO AC 05/07/17 05/07/17 Unknown History Ticagrelor [Brilinta] 90 mg PO BID 05/07/17 05/07/17 Unknown History Active Meds: Active Medications Acetaminophen (Tylenol) 650 mg PO Q4H PRN PRN Reason: Pain MILD(1-3)/Fever >100.5/IYER Aspirin (Baby Aspirin) 81 mg PO QDAY JACKELINE Atorvastatin Calcium (Lipitor) 40 mg PO QHS JACKELINE Bisacodyl (Dulcolax) 10 mg MD QDAY PRN PRN Reason: Constipation unrelieved by MOM Carvedilol (Coreg) 12.5 mg PO BID JACKELINE Cinacalcet (Sensipar) 60 mg PO BID JACKELINE Dextrose (D50w (25gm) Syringe) 50 ml IV PRN PRN PRN Reason: Hypoglycemia Heparin Sodium (Porcine) (Heparin) 5,000 unit SUB-Q Q12HR JACKELINE Sodium Chloride (Nacl 0.9%) 100 mls @ 999 mls/hr IV WALESKA PRN PRN Reason: Hypotension Insulin Aspart (Novolog) 0 units SUB-Q AC JACKELINE PRN Reason: Protocol Insulin Aspart (Novolog) 0 units SUB-Q QHS JACKELINE PRN Reason: Protocol Losartan Potassium (Cozaar) 50 mg PO QHS JACKELINE Miscellaneous Medication (Sucroferric Oxyhydroxide [Velphoro]) 1,000 mg PO AC JACKELINE Ticagrelor (Brilinta) 90 mg PO BID [facility] Review of Systems Constitutional: no weight loss, no weight gain, no fever, no chills, no sweats Ears, nose, mouth and throat: no ear pain, no nose pain, no sinus pressure, no sinus pain Cardiovascular: orthopnea, shortness of breath, leg edema (RLE), no chest pain, no palpitations, no rapid/irregular heart beat, no edema, no syncope, no lightheadedness Respiratory: shortness of breath, no cough, no congestion, no wheezing, no pain on inspiration Gastrointestinal: no abdominal pain, no nausea, no vomiting, no diarrhea, no constipation, no change in bowel habits Genitourinary Male: no dysuria, no hematuria, no flank pain, no discharge, no urinary frequency, no urinary hesitancy Musculoskeletal: no neck stiffness, no neck pain, no shooting arm pain, no arm numbness/tingling, no low back pain, no shooting leg pain, no leg numbness/ tingling, no redness of joints Integumentary: no rash, no pruritis, no redness, no sores, no wounds Neurological: no head injury, no paralysis, no weakness, no parathesias, no numbness, no tingling, no seizures, no syncope Psychiatric: no anxiety Endocrine: no cold intolerance, no heat intolerance, no polyphagia, no excessive thirst, no polydipsia, no polyuria, no nocturia Hematologic/Lymphatic: no easy bruising, no easy bleeding, no lymphadenopathy Allergic/Immunologic: no urticaria, no wheezing Physical Examination Vital Signs Pulse Resp 126 H 17 05/07/17 05:36 05/07/17 05:36 General appearance: no acute distress HEENT: Positive: PERRL, Normocephaly, Mucus Membranes Moist Neck: Positive: neck supple, trachea midline Cardiac: Positive: Reg Rate and Rhythm, S1/S2, Systolic Murmur Lungs: Positive: Rales (scattered) Neuro: Positive: Grossly Intact, Cranial Nerve 2-12 Intact Abdomen: Positive: Unremarkable, Soft, Active Bowel Sounds. Negative: Tender Skin: Positive: Clear. Negative: Rash, Wound Musculoskeletal: No Pain, Normal Range of Motion, other (left BKA) Extremities: Absent: edema Results 05/07/17 05:40 05/07/17 05:40 Lipids 05/07/17 Range/Units 05:40 Triglycerides 100 (2-149) mg/dL Cholesterol 155 (50-199) mg/dL HDL Cholesterol 73 H (40-59) mg/dL Cholesterol/HDL Ratio 2.12 % CBC 05/07/17 Range/Units 05:40 WBC 11.3 H (4.5-11.0) K/mm3 RBC 3.68 (3.65-5.03) M/mm3 Hgb 11.3 L (11.8-15.2) gm/dl Hct 35.5 (35.5-45.6) % Plt Count 267 (140-440) K/mm3 Comprehensive Metabolic Panel 05/07/17 Range/Units 05:40 Sodium 146 H (137-145) mmol/L Potassium 4.7 (3.6-5.0) mmol/L Chloride 100.1 (98-107) mmol/L Carbon Dioxide 25 (22-30) mmol/L BUN 61 H (9-20) mg/dL Creatinine 10.3 H (0.8-1.5) mg/dL Glucose 162 H (75-100) mg/dL Calcium 10.0 (8.4-10.2) mg/dL - Imaging and Cardiology Echo: report reviewed (08/04/2016 showed EF 35-40%, mild - JERE 1.53, AV mean gradient 6mmHg, abnormal diastolic function.) Cardiac cath: report reviewed (08/04/2016 showed EF 30 - 35%, PCI of mid LAD with 2 JADE) EKG: report reviewed, image reviewed EKG interpretations - Telemetry EKG Rhythm: Sinus Rhythm - EKG Sinus rhythms and dysrhythmias: sinus tachycardia Chamber hypertrophy or enlargement: left ventricular hypertro Assessment and Plan Initiate Imdur 30mg daily. Cont all other present cardiac regimen. ECG with NAF. Pt denies chest pain. Cont to trend Wandy. Volume optimization per nephrology. The patient has been seen in conjunction with Dr. Mccallum who agrees with the assessment and plan of care. - Patient Problems (1) Acute combined systolic and diastolic heart failure Current Visit: Yes Status: Acute (2) Acute respiratory failure Current Visit: Yes Status: Acute Qualifiers: Respiratory failure complication: hypoxia Qualified Code(s): J96.01 - Acute respiratory failure with hypoxia (3) Ischemic cardiomyopathy Current Visit: Yes Status: Chronic (4) CAD (coronary artery disease) Current Visit: Yes Status: Chronic (5) Stented coronary artery Current Visit: Yes Status: Chronic (6) ESRD (end stage renal disease) on dialysis Current Visit: Yes Status: Chronic (7) Elevated troponin Current Visit: Yes Status: Acute (8) Hypertension Current Visit: Yes Status: Chronic Qualifiers: Hypertension type: essential hypertension Qualified Code(s): I10 - Essential (primary) hypertension (9) Diabetes mellitus Current Visit: Yes Status: Chronic Qualifiers: Diabetes mellitus type: type 2 Diabetes mellitus complication status: with circulatory complication Diabetes mellitus complication detail: with peripheral angiopathy without gangrene Diabetes mellitus rat exterminator insulin use : with usp use Qualified Code(s): E11.51 - Type 2 diabetes mellitus with diabetic peripheral angiopathy without gangrene; Z79.4 - intermediate designer (current ) use of insulin (10) PAD (peripheral artery disease) Current Visit: Yes Status: Chronic
[2017-05-07] MEDS: IMDUR PO SCH (17:00)
[2017-05-07 17:58] LABS: Creatine Kinase MB 2.9 ng/mL (0.0-4.0)
[2017-05-07] MEDS ORDERED: NOVOLOG SUB-Q SCH (22:00)
[2017-05-07] MEDS ORDERED: COZAAR PO SCH ×2 (22:00)
[2017-05-08 05:08] LABS: Basophils % (Auto) 0.8 % (0.0-1.8); Eosinophils % (Auto) 0.3 % (0.0-4.3); Hematocrit 29.9 % (35.5-45.6); Hemoglobin 9.8 gm/dl (11.8-15.2); Mean Corpuscular HGB Conc 33 % (32-34); Mean Corpuscular Hemoglobin 31 pg (28-32); Mean Corpuscular Volume 96 fl (84-94); Platelet Count 206 K/mm3 (140-440); Red Blood Count 3.13 M/mm3 (3.65-5.03); Red Cell Distribution Width 17.4 % (13.2-15.2)
[2017-05-08 05:35] LABS: Calcium 9.3 mg/dL (8.4-10.2); Chloride 102.4 mmol/L (98-107)
--- NOTE | 2017-05-08 08:54 | Progress Note ---
Assessment and Plan Impression: * ESRD * Accelerated HTN * Volume overload * Hyperparathyroidism * Cardiomyopathy--sys/dialstolic * CAD Plan: * HD qMWF * uf as tolerated * strict i/os * bp control * cardiology following * advise on fluid and dialysis compliance * renal diet Subjective Date of service: 05/08/17 Principal diagnosis: esrd Interval history: resting well in bed today Objective - Exam Narrative Exam: General Limitations: Physical Limitation General appearance: alert, in distress, obese - Head Head exam: Present: atraumatic, normocephalic - Eye Eye exam: Present: normal appearance - ENT ENT exam: Present: normal exam, normal orophraynx, mucous membranes moist, normal external ear exam - Neck Neck exam: Present: normal inspection, full ROM - Respiratory Respiratory exam: Present: respiratory distress, rales, rhonchi - Cardiovascular Cardiovascular Exam: Present: normal rhythm, tachycardia, normal heart sounds. Absent: systolic murmur, diastolic murmur, rubs, gallop - GI/Abdominal GI/Abdominal exam: Present: soft, normal bowel sounds. Absent: distended, tenderness, guarding, rebound, rigid - Rectal Rectal exam: Present: deferred - Extremities Exam Extremities exam: Present: normal inspection (status post left lower extremity below-knee amputation), full ROM, other (left upper extremity AV fistula, appropriate thrill.). Absent: calf tenderness - Back Exam Back exam: Present: normal inspection. Absent: tenderness, CVA tenderness (R), paraspinal tenderness - Neurological Exam Neurological exam: Present: alert, oriented X3, CN II-XII intact, other ( Extraocular movements intact. Tongue midline. No facial droop. Facial sensation intact to light touch in the V1, V2, V3 distribution bilaterally. 5 and 5 strength in 4 extremities.. Sensation is intact to light touch in 4 extremities.) - Psychiatric Psychiatric exam: Present: normal affect, normal mood - Skin Skin exam: Present: warm, dry, intact, normal color. Absent: rash - Vital Signs Vital signs: Vital Signs - 12hr 05/07/17 05/07/17 05/07/17 20:59 22:53 23:00 Temperature 98.4 F Pulse Rate 92 H 92 H Respiratory 20 20 Rate Blood Pressure 99/49 99/49 O2 Sat by Pulse 100 100 Oximetry 05/08/17 05/08/17 05/08/17 01:13 04:34 07:42 Temperature 98.8 F 98.2 F Pulse Rate 93 H 85 Respiratory 20 18 Rate Blood Pressure 105/47 120/68 120/63 O2 Sat by Pulse 99 98 Oximetry - Lab 05/08/17 04:00 05/08/17 04:00 Most recent lab results Calcium 9.3 mg/dL (8.4-10.2) 05/08/17 04:00
[2017-05-08] MEDS: COREG PO SCH (10:58)
[2017-05-08] MEDS: BRILINTA PO SCH (10:58)
[2017-05-08] MEDS: SENSIPAR PO SCH (10:59)
[2017-05-08] MEDS: BABY ASPIRIN PO SCH (10:59)
[2017-05-08] MEDS: IMDUR PO SCH (10:59)
[2017-05-08] MEDS: HEPARIN SUB-Q SCH (10:59)
[2017-05-08 11:15] VITALS: BP 129/64
--- NOTE | 2017-05-08 11:37 | Progress Note ---
Assessment and Plan Currently stable cardiac status. Pt denies chest pain. ECG with NAF. Given recent LHC, will plan for repeat pharmacologic stress test as OP in the near future. Cont current medical management. Pt may discharge home from cardiology standpoint. Follow up in our [place] office with Dr. Bob on 05/14/2017 @ 2:45PM. The patient has been seen in conjunction with Dr. Mccallum who agrees with the assessment and plan of care. - Patient Problems (1) Acute combined systolic and diastolic heart failure Current Visit: Yes Status: Acute (2) Acute respiratory failure Current Visit: Yes Status: Acute Qualifiers: Respiratory failure complication: hypoxia Qualified Code(s): J96.01 - Acute respiratory failure with hypoxia (3) Ischemic cardiomyopathy Current Visit: Yes Status: Chronic (4) CAD (coronary artery disease) Current Visit: Yes Status: Chronic (5) Stented coronary artery Current Visit: Yes Status: Chronic (6) ESRD (end stage renal disease) on dialysis Current Visit: Yes Status: Chronic (7) Hypertension Current Visit: Yes Status: Chronic Qualifiers: Hypertension type: essential hypertension Qualified Code(s): I10 - Essential (primary) hypertension (8) Diabetes mellitus Current Visit: Yes Status: Chronic Qualifiers: Diabetes mellitus type: type 2 Diabetes mellitus complication status: with circulatory complication Diabetes mellitus complication detail: with peripheral angiopathy without gangrene Diabetes mellitus usp insulin use : with supervisor long goods use Qualified Code(s): E11.51 - Type 2 diabetes mellitus with diabetic peripheral angiopathy without gangrene; Z79.4 - snf (current ) use of insulin (9) PAD (peripheral artery disease) Current Visit: Yes Status: Chronic (10) Non-ST elevation [place] (NSTEMI) Current Visit: Yes Status: Acute Subjective Date of service: 05/08/17 Principal diagnosis: esrd Interval history: Pt sitting comfortably at bedside. no current complaints. SOB resolved. Objective Last Vital Signs Temp 98.2 F 05/08/17 07:42 Pulse 85 05/08/17 07:42 Resp 18 05/08/17 07:42 BP 129/64 05/08/17 10:59 Pulse Ox 98 05/08/17 07:42 - Physical Examination HEENT: Positive: PERRL, Normocephaly, Mucus Membranes Moist Neck: Positive: neck supple, trachea midline Neuro: Positive: Grossly Intact, Cranial Nerve 2-12 Intact Abdomen: Positive: Unremarkable, Soft, Active Bowel Sounds. Negative: Tender Skin: Positive: Clear. Negative: Rash, Wound Musculoskeletal: No Pain, Normal Range of Motion, other (left BKA) Extremities: Absent: edema - Labs and Meds Cardiac Enzymes 05/07/17 Range/Units 17:23 CK-MB (CK-2) 2.9 (0.0-4.0) ng/mL CBC 05/08/17 Range/Units 04:00 WBC 6.0 (4.5-11.0) K/mm3 RBC 3.13 L (3.65-5.03) M/mm3 Hgb 9.8 L (11.8-15.2) gm/dl Hct 29.9 L (35.5-45.6) % Plt Count 206 (140-440) K/mm3 Lymph # 1.2 (1.2-5.4) K/mm3 Meade # 0.8 (0.0-0.8) K/mm3 Eos # 0.0 (0.0-0.4) K/mm3 Baso # 0.0 (0.0-0.1) K/mm3 Comprehensive Metabolic Panel 05/08/17 Range/Units 04:00 Sodium 146 H (137-145) mmol/L Potassium 4.0 (3.6-5.0) mmol/L Chloride 102.4 (98-107) mmol/L Carbon Dioxide 28 (22-30) mmol/L BUN 37 H (9-20) mg/dL Creatinine 7.3 H (0.8-1.5) mg/dL Glucose 82 (75-100) mg/dL Calcium 9.3 (8.4-10.2) mg/dL - Imaging and Cardiology EKG: report reviewed, image reviewed Echo: report reviewed (08/04/2016 showed EF 35-40%, mild - JERE 1.53, AV mean gradient 6mmHg, abnormal diastolic function.) Cardiac cath: report reviewed (08/04/2016 showed EF 30 - 35%, PCI of mid LAD with 2 JADE) - EKG Sinus rhythms and dysrhythmias: sinus tachycardia Chamber hypertrophy or enlargement: left ventricular hypertro
--- NOTE | 2017-05-08 12:20 | Discharge Summary ---
Providers - Providers Date of Admission: 05/07/17 07:47 Date of discharge: 05/08/17 Attending physician: VICKY ELLISON 05/07/17 06:19 Consult to Physician [CONS] Urgent Consulting Provider: DALI DENTON Reason For Exam: esrd Notified:: awaiting call grant 05/07/17 15:05 Consult to Physician [CONS] Routine Consulting Provider: CALLY CARTER Reason For Exam: acute chf Place consult to:: Notified:: Phone number called:: yes If yes, spoke with:: LUKE 05/08/17 12:06 Consult to Cardiac Rehabilitation [CONS] Routine Reason For Exam: nstemi Primary care physician: CUSHION FILLER Hospitalization Condition: Good Hospital course: Patient a 71-year-old male with past medical history of end- stage renal disease on dialysis, hypertension, diabetes mellitus, congestive heart failure, PCI to LAD on 08/18, hyperlipidemia, peripheral vascular disease, left BKA and diabetes mellitus. He presents to ED with worsening shortness of breath. Patient last dialysis was 3 days ago on Friday 05/04. He is diagnosed with acute on chronic CHF, NSTEMI type 2 and admitted. He was evaluated by Gang Hemstitching Machine Operator and Cardiology. Hemodialysis was done later same day. Following day , and he felt much better, shortness of breath resolved and he was discharged home to follow as outpatient. Disposition: TO HOME OR SELFCARE - Discharge Diagnoses (1) Acute on chronic combined systolic (congestive) and diastolic (congestive) heart failure Status: Acute (2) Elevated troponin I level Status: Acute (3) CAD (coronary artery disease) Status: Chronic (4) ESRD (end stage renal disease) on dialysis Status: Chronic (5) Hypertension Status: Chronic Qualifiers: Hypertension type: essential hypertension Qualified Code(s): I10 - Essential (primary) hypertension (6) Ischemic cardiomyopathy Status: Chronic (7) PAD (peripheral artery disease) Status: Chronic (8) Stented coronary artery Status: Chronic (9) NSTEMI (non-ST elevated myocardial infarction) Status: Acute Core Measure Documentation - Palliative Care Palliative Care/ Comfort Measures: Not Applicable - Core Measures Any of the following diagnoses?: none - Acute NC Discharge Requirements Aspirin at discharge: Yes MARTI/ARB for LVSD if EF <40%: Yes Beta sandy at discharge: Yes Statin for LDL = or >100 mg/dl on DC: Yes - Heart Failure Discharge Requirements MARTI/ARB for LVSD if EF <40%: Yes Beta sandy at discharge: Yes Exam - Constitutional Vitals: Temp Pulse Resp BP Pulse Ox 98.2 F 85 18 129/64 98 05/08/17 07:42 05/08/17 07:42 05/08/17 07:42 05/08/17 10:59 05/08/17 07:42 General appearance: Present: no acute distress - EENT ENT: hearing intact - Neck Neck: Present: supple - Respiratory Respiratory effort: normal Respiratory: bilateral: CTA - Cardiovascular Rhythm: regular Heart Sounds: Present: S1 & S2 (S1 and S2 reg, no murmurs) - Extremities Extremities: No edema - Abdominal General gastrointestinal: Present: soft, non-tender - Musculoskeletal Musculoskeletal: strength equal bilaterally Plan Activity: no restrictions Diet: low fat, low cholesterol, low salt, renal Additional Instructions: 1.Follow up with PCP in 1 week. 2.Follow up with Dr. Bob, Cardiology on 05/14/17. 3. Continue routine hemodialysis as scheduled Follow up with: PRIMARY CARE, [Primary Care Provider] - 3-5 Days Prescriptions: Losartan [Cozaar] 25 mg PO QHS #30 tablet
[2017-05-08] MEDS: NOVOLOG SUB-Q SCH ×2 (13:02→13:03)
== END 2017-05-08 14:40 | disposition home or self-care (01) | DRG 280 ==
LOC: ED 05:37 → 2B-ACE 07:47
PROVIDERS: ADMIT Internal Medicine; ATTEND Internal Medicine
PROC: 5A1D70Z Performance of Urinary Filtration, Intermittent, Less than 6 Hours Per Day (ICD-10-PCS; principal; 2017-05-07)
PROC: 5A09357 Assistance with Respiratory Ventilation, Less than 24 Consecutive Hours, Continuous Positive Airway Pressure (ICD-10-PCS; 2017-05-07)
DX: I21.4 Non-ST elevation (NSTEMI) myocardial infarction (principal); I50.43 Acute on chronic combined systolic (congestive) and diastolic (congestive) heart failure; J96.01 Acute respiratory failure with hypoxia; N18.6 End stage renal disease; J81.1 Chronic pulmonary edema; I13.2 Hypertensive heart and chronic kidney disease with heart failure and with stage 5 chronic kidney disease, or end stage renal disease; E87.0 Hyperosmolality and hypernatremia; Z99.2 Dependence on renal dialysis; E87.5 Hyperkalemia; I16.0 Hypertensive urgency; E11.51 Type 2 diabetes mellitus with diabetic peripheral angiopathy without gangrene; E11.22 Type 2 diabetes mellitus with diabetic chronic kidney disease; E78.5 Hyperlipidemia, unspecified; Z89.512 Acquired absence of left leg below knee; I25.2 Old myocardial infarction; Z79.82 Long term (current) use of aspirin; Z83.3 Family history of diabetes mellitus; Z82.49 Family history of ischemic heart disease and other diseases of the circulatory system; E21.3 Hyperparathyroidism, unspecified; I25.10 Atherosclerotic heart disease of native coronary artery without angina pectoris; I25.5 Ischemic cardiomyopathy; K21.9 Gastro-esophageal reflux disease without esophagitis; Z79.4 Long term (current) use of insulin
CPT/HCPCS: 36415; 71010; 80048; 80061; 80074; 82550; 82553; 82962; 83880; 84484; 85007; 85025; 93005; 93010; 94640; 96374; 96375; A9270-GY; J1644; J1815; J1940; J2405